=== PATIENT | female | born 1940 | race Caucasian/White ===

== ENCOUNTER 2020-06-26 06:15 | Outpatient (REF) | payer MEDICARE, SELFPAY ==
[2020-06-26 07:21] LABS: MANUAL DIFF FLAG NO
[2020-06-26 07:26] LABS: Basophils Percent Auto 0.2 % (0-2); Eosinophils Absolute Auto 0.3 X10*3/uL (0.0-0.4); Eosinophils Percent Auto 5.9 % (0-4); Hematocrit 39.9 % (37-47); Lymphocytes Absolute Auto 2.2 X10*3/uL (1.2-4.9); Lymphocytes Percent Auto 44.1 % (20-40); Mean Corpuscular HGB Conc 32.6 g/dl (31.0-35.0); Mean Corpuscular Hemoglobin 29.5 pg (27.0-33.0); Mean Corpuscular Volume 90.7 fL (80-98); Mean Platelet Volume 11.3 fL (9.4-12.3); Monocytes Absolute Auto 0.4 X10*3/uL (0.1-1.2); Neutrophils Percent Auto 40.8 % (45-73); Platelet Count 214 X10*3/uL (160-400); Red Cell Distribution Width 12.9 % (11.0-16.0); White Blood Count 4.9 X10*3/uL (4.8-10.8)
[2020-06-26 07:42] LABS: Alanine Aminotransferase 19 U/L (0-31); Albumin Level 4.2 g/dL (3.5-5.0); Alkaline Phosphatase 79 U/L (39-117); Anion Gap 13 (12-20); Aspartate Amino Transferase 24 U/L (5-31); Bilirubin Total 0.5 mg/dL (0.0-1.0); Blood Urea Nitrogen 12 mg/dL (9-16); Carbon Dioxide 28 mmol/L (22-29); Chloride 105 mmol/L (96-108); Cholesterol 213 mg/dL; Estimated Glomerular Filt Rate 56; Glucose Random 99 mg/dL (60-115); HDL Cholesterol 82 mg/dL; LDL Cholesterol Calculated 117 mg/dl; Potassium 4.4 mmol/l (3.3-5.1); Sodium 142 mmol/L (135-145); Total Protein 6.2 g/dL (6.5-8.0); Triglycerides 71 mg/dL
[2020-06-26 08:04] LABS: Thyroid Stimulating Hormone 1.54 uIU/mL (0.32-4.0)
== END 2020-06-26 06:16 | disposition home or self-care (01) ==
LOC: HO.LAB 06:15
PROVIDERS: Visit Provider Internal Medicine
DX: E78.5 Hyperlipidemia, unspecified (principal)
CPT/HCPCS: 36415; 80053; 80061; 84443; 85025

== ENCOUNTER 2021-02-01 08:42 | Outpatient (REF) | payer SELFPAY ==
--- NOTE | 2021-02-01 10:50 | MHC.AU.HFU ---
Hearing Instrument Follow-Up- Binaural Date of Visit: 02/01/21 Right Ear: Commissary Production Supervisor: Ricky Model: Ignite 30 BTE Serial Number: [id number] Repair Warranty: Loss and Damage Warranty: Battery Size: 13 Dispensed By: [facility] Date of Fittin09/17/2011 Left Ear: Commissary Production Supervisor: Ricky Model: Ignite 30 BTE Serial Number: [id number] Repair Warranty: Loss and Damage Warranty: Battery Size: 13 Dispensed By: [facility] Date of Fittin09/17/2011 Follow-Up Summary: Patient reports that she has not been hearing well with the hearing aids recently. Tubing was occluded in both molds. Molds cleaned and tubing replaced. Cleaned shell and battery compartments. Hearing aids are amplifying clearly after maintenance. Otoscopy performed- mostly occluded canals bilaterally. With permission, a lighted disposable curette was used to remove cerumen bilaterally without incident. After cerumen management, canals are clear. Recommendations: Hearing instrument follow-up or maintenance as needed. Paid $35 for cerumen removal. Patient is interested in new hearing aids, potentially ITCs, because her current ones are about 9.5 years old. Discussed that she will need an order for an updated audio, as her last audio was in 2018. We can then discuss new hearing aids after the updated audio. Diagnosis Code(s): Primary Diagnosis: H90.6 Mixed Hearing Loss, Bilateral Secondary Diagnosis: H61.23 Impacted Cerumen, Bilateral Signature: Provider: Awa Sosa, [facility]
== END 2021-02-01 08:43 | disposition home or self-care (01) ==
LOC: HO.HAP 08:42
PROVIDERS: Visit Provider Internal Medicine
DX: H90.6 Mixed conductive and sensorineural hearing loss, bilateral (principal); H61.23 Impacted cerumen, bilateral
CPT/HCPCS: 92700

== ENCOUNTER 2021-02-05 08:23 | Outpatient (REF) | payer MEDICARE, SELFPAY ==
--- NOTE | 2021-02-05 09:55 | MHC.AU.AHA ---
Adult Audiological Evaluation Date of Visit: 02/05/21 Stockfeed Miller Used: Not Applicable Reason for Appointment: Audiologic re-evaluation due to increased difficulties hearing and understanding speech. Isis has binaural [id number] hearing aids which were purchased at this office in 2011. She is interested in purchasing new binaural custom in-the-ear hearing aids with multiple program options to improve ease of use and speech understanding in various listening environments. Previous Hearing Test Results: 02/10/2018 Dr. 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 Ear History: History of Ear Wax Buildup: Both Ears Cerumen removal was performed at this office on 02/01/2021 Medical History: Medical History: High cholesterol and post nasal drip Medication List: Not available for review. Isis reports she takes cholesterol medication, prescription nasal spray, multivitamin, and calcium Hearing Instrument History- Right Ear: Tax Revenue Officer: Voltage Security Model: Ignite 30 LaserLeapE Serial Number: [id number] Battery Size: 13 Repair Warranty: Loss and Damage Warranty: Dispensed By: [facility] Date of Fittin Hearing Instrument History- Left Ear: Tax Revenue Officer: Voltage Security Model: Ignite 30 BTE Serial Number: [id number] Battery Size: 13 Warranty: Loss and Damage Warranty: Dispensed By: [facility] Date of Fittin Otoscopy: Right Ear: Unremarkable Left Ear: Unremarkable Tympanometry: Tympanometry not performed today as all previous test results have indicated normal middle ear function bilaterally Hearing Evaluation: Transducer(s) Used: Insert Earphones Bone Conduction Method: Conventional Audiometry Stimuli Used: Pure Tones Right Ear: Description of Hearing: Moderately-severe to severe sensorineural hearing loss Left Ear: Description of Hearing: Moderately-severe to severe sensorineural hearing loss Speech Recognition Threshold (SRT): Method Used: Monitored Live Voice Stimuli Used: Spondee Words Right Ear: 65 dB HL Left Ear: 65 dB HL Word Discrimination: Method: Recorded Lists Word Lists Used: NU-6 Right Ear: 76% at 95 dB HL Left Ear: 68% at 95 dB HL Most Comfortable Level (MCL): Right Ear: 95 dB HL Left Ear: 95 dB HL Comparison: Compared to the most recent evaluation: Hearing is stable. Word discrimination scores have decreased bilaterally. Recommendations: Trial with binaural Voltage Security [id number] in-the-ear hearing aids is recommended. Medical clearance from a physician is required before fitting. Hearing Aid Fitting will be scheduled when all materials arrive. Audiological re-evaluation in one year. Will send a reminder card. Diagnosis: Primary Diagnosis: H90.3 Bilateral Sensorineural Hearing Loss Services Performed: Comprehensive Audiological Evaluation (CPT 68594) Signature: Provider: MONA Bray
== END 2021-02-05 08:24 | disposition home or self-care (01) ==
LOC: HO.SH 08:23
PROVIDERS: Visit Provider Internal Medicine
DX: H90.3 Sensorineural hearing loss, bilateral (principal)
CPT/HCPCS: 92557

== ENCOUNTER 2021-02-05 09:16 | Outpatient (REF) | payer SELFPAY ==
--- NOTE | 2021-02-05 10:04 | MHC.AU.HAS ---
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 Summary: Patient is experiencing increased hearing difficulties and unable to understand speech when attending [employer]. She would like to purchase new in-the-ear hearing aids with a program button to change programs for the various listening environments she experiences. Hearing Aid Prescription: Based on the individual?s shared listening needs, communication environments, dexterity, desire for connectivity, and personal preferences, the following prescription for amplification has been made: Right ear: Books Binder: Hands-On Mobile Model: Gerard i1600 ITE Battery Size: 13 Color: [place] Waxer Floor: 130/70 Left ear: Books Binder: Hands-On Mobile Model: Gerard i1600 ITE Battery Size: 13 Color: [place] Waxer Floor: 130/70 Plan of Care: Patient wishes to purchase hearing aids as prescribed Action Taken/Action Needed: Earmold Impressions Taken, Medical Clearance to be requested from PCP/ENT, Hearing Instrument Fitting to be scheduled when materials arrive Primary Diagnosis: H90.3 Bilateral Sensorineural Hearing Loss Signature: Janell Billings, CCC-A Provider:
--- NOTE | 2021-02-05 10:07 | MHC.AU.MED ---
Medical Clearance for Hearing Instrumentation Date: 02/05/21 Patient Name: Isis Valentin Date of : 1940 Primary Care Provider: Referring Provider: Jesus Hunter MD We have seen your patient on 02/05/21 and have determined that they are a candidate for amplification (See accompanying report). Specifically, they would benefit from: Hearing aid use in both ears There is a statute that addresses Medical Evaluation Requirements prior to fitting a patient with a hearing aid. According to [place] statute 265 CMR:6.03(1), (a) General. Except as provided in 265 CMR 6.03(1)(b), a hearing therapy teacher shall not sell a hearing aid unless the prospective user has presented to the hearing therapy teacher a written statement signed by a licensed physician that states that the patient's hearing loss has been medically evaluated and the patient may be considered a candidate for a hearing aid. The medical evaluation must have taken place within the preceding six months. Please note: Due to the [place] Statute referenced above, we cannot accept a signature other than that of a licensed physician. MACHINE STACKER and PA signatures cannot be accepted. I am in agreement with the above recommendation. There is no medical contraindication for hearing instrumentation. Physician Signature Date Physician Name (Printed)
== END 2021-02-05 09:17 | disposition home or self-care (01) ==
LOC: HO.HAP 09:16
PROVIDERS: Visit Provider Internal Medicine
DX: Z46.1 Encounter for fitting and adjustment of hearing aid (principal); H90.3 Sensorineural hearing loss, bilateral
CPT/HCPCS: 92591

== ENCOUNTER 2021-02-23 08:50 | Outpatient (REF) | payer SELFPAY | END 2021-02-23 08:51 | disposition home or self-care (01) | LOC: HO.HAP 08:50 | PROVIDERS: Visit Provider Internal Medicine | DX: Z46.1 Encounter for fitting and adjustment of hearing aid (principal); H90.3 Sensorineural hearing loss, bilateral | CPT/HCPCS: V5260 ==

== ENCOUNTER 2021-03-09 10:39 | Outpatient (REF) | payer SELFPAY | END 2021-03-09 10:40 | disposition home or self-care (01) | LOC: HO.HAP 10:39 | PROVIDERS: Visit Provider Internal Medicine | DX: Z13.89 Encounter for screening for other disorder (principal) ==

== ENCOUNTER 2021-03-20 09:46 | Outpatient (REF) | payer SELFPAY | END 2021-03-20 09:47 | disposition home or self-care (01) | LOC: HO.HAP 09:46 | PROVIDERS: Visit Provider Internal Medicine | DX: Z13.89 Encounter for screening for other disorder (principal) ==

== ENCOUNTER 2021-07-09 06:54 | Outpatient (REF) | payer MEDICARE, SELFPAY ==
[2021-07-09 07:05] LABS: MANUAL DIFF FLAG NO
[2021-07-09 07:46] LABS: Basophils Percent Auto 0.3 % (0-2); Eosinophils Absolute Auto 0.2 X10*3/uL (0.0-0.4); Eosinophils Percent Auto 3.3 % (0-4); Hematocrit 43.8 % (37.0-47.0); Hemoglobin 14.3 g/dl (12.0-16.0); Imm Gran Abs Auto 0.01 X10*3/uL (0.00-0.03); Imm Gran Pct Auto 0.2 % (0.0-0.4); Lymphocytes Absolute Auto 2.4 X10*3/uL (1.2-4.9); Lymphocytes Percent Auto 37.8 % (20-40); Mean Corpuscular HGB Conc 32.6 g/dl (31.0-35.0); Mean Corpuscular Hemoglobin 30.1 pg (27.0-33.0); Mean Corpuscular Volume 92.2 fL (80.0-98.0); Mean Platelet Volume 10.4 fL (9.4-12.3); Monocytes Absolute Auto 0.6 X10*3/uL (0.1-1.2); Monocytes Percent Auto 9.8 % (2-11); Neutrophils Absolute Auto 3.1 x10*3/uL (2.0-8.3); Neutrophils Percent Auto 48.6 % (45-73); Platelet Count 277 X10*3/uL (160-400); Red Blood Count 4.75 X10*6/uL (4.20-5.50); White Blood Count 6.4 X10*3/uL (4.8-10.8)
[2021-07-09 08:13] LABS: Alanine Aminotransferase 22 U/L (0-31); Albumin Level 4.5 g/dL (3.5-5.0); Alkaline Phosphatase 87 U/L (39-117); Anion Gap 12 (12-20); Aspartate Amino Transferase 27 U/L (5-31); Bilirubin Total 0.6 mg/dL (0.0-1.0); Blood Urea Nitrogen 12 mg/dL (9-16); Calcium 9.8 mg/dL (8.4-10.2); Carbon Dioxide 27 mmol/L (22-29); Chloride 105 mmol/L (96-108); Cholesterol 254 mg/dL; Estimated Glomerular Filt Rate 50; Glucose Fasting 103 mg/dL (60-99); HDL Cholesterol 108 mg/dL; LDL Cholesterol Calculated 125 mg/dl; Potassium 4.3 mmol/L (3.3-5.1); Sodium 140 mmol/L (135-145); Total Protein 7.1 g/dL (6.5-8.0); Triglycerides 107 mg/dL
== END 2021-07-09 06:55 | disposition home or self-care (01) ==
LOC: HO.LAB 06:54
PROVIDERS: PCP Internal Medicine; Visit Provider Internal Medicine
DX: Z00.00 Encounter for general adult medical examination without abnormal findings (principal); E11.9 Type 2 diabetes mellitus without complications
CPT/HCPCS: 36415; 80053; 80061; 85025

== ENCOUNTER 2021-10-11 07:00 | Outpatient (REF) | payer MEDICARE, SELFPAY ==
[2021-10-11 08:00] LABS: Cholesterol 221 mg/dL; HDL Cholesterol 92 mg/dL; LDL Cholesterol Calculated 115 mg/dl; Triglycerides 74 mg/dL
== END 2021-10-11 07:01 | disposition home or self-care (01) ==
LOC: HO.LAB 07:00
PROVIDERS: PCP Internal Medicine; Visit Provider Internal Medicine
DX: Z00.00 Encounter for general adult medical examination without abnormal findings (principal)
CPT/HCPCS: 36415; 80061

== ENCOUNTER 2022-01-11 06:17 | Outpatient (REF) | payer MEDICARE, SELFPAY ==
[2022-01-11 06:43] LABS: MANUAL DIFF FLAG NO
[2022-01-11 07:18] LABS: Basophils Percent Auto 0.4 % (0-2); Eosinophils Absolute Auto 0.2 X10*3/uL (0.0-0.4); Eosinophils Percent Auto 3.2 % (0-4); Hematocrit 37.7 % (37.0-47.0); Hemoglobin 12.5 g/dl (12.0-16.0); Imm Gran Abs Auto 0.01 X10*3/uL (0.00-0.03); Imm Gran Pct Auto 0.2 % (0.0-0.4); Lymphocytes Absolute Auto 1.8 X10*3/uL (1.2-4.9); Lymphocytes Percent Auto 38.5 % (20-40); Mean Corpuscular HGB Conc 33.2 g/dl (31.0-35.0); Mean Corpuscular Hemoglobin 29.8 pg (27.0-33.0); Mean Platelet Volume 10.3 fL (9.4-12.3); Monocytes Absolute Auto 0.5 X10*3/uL (0.1-1.2); Monocytes Percent Auto 9.6 % (2-11); Neutrophils Absolute Auto 2.2 x10*3/uL (2.0-8.3); Neutrophils Percent Auto 48.1 % (45-73); Platelet Count 222 X10*3/uL (160-400); Red Blood Count 4.19 X10*6/uL (4.20-5.50); Red Cell Distribution Width 12.9 % (11.0-16.0); White Blood Count 4.7 X10*3/uL (4.8-10.8)
[2022-01-11 07:50] LABS: Alanine Aminotransferase 15 U/L (0-31); Albumin Level 4.1 g/dL (3.5-5.0); Alkaline Phosphatase 88 U/L (39-117); Anion Gap 13 (12-20); Aspartate Amino Transferase 21 U/L (5-31); Bilirubin Total 0.6 mg/dL (0.0-1.0); Blood Urea Nitrogen 13 mg/dL (9-16); Calcium 8.9 mg/dL (8.4-10.2); Carbon Dioxide 25 mmol/L (22-29); Chloride 107 mmol/L (96-108); Cholesterol 210 mg/dL; Estimated Glomerular Filt Rate 57; Glucose Fasting 88 mg/dL (60-99); HDL Cholesterol 78 mg/dL; LDL Cholesterol Calculated 122 mg/dl; Potassium 4.4 mmol/L (3.3-5.1); Sodium 141 mmol/L (135-145); Total Protein 6.2 g/dL (6.5-8.0); Triglycerides 53 mg/dL
[2022-01-11 08:09] LABS: Thyroid Stimulating Hormone 1.52 uIU/mL (0.32-4.0)
== END 2022-01-11 06:18 | disposition home or self-care (01) ==
LOC: HO.LAB 06:17
PROVIDERS: PCP Internal Medicine; Visit Provider Internal Medicine
DX: Z00.00 Encounter for general adult medical examination without abnormal findings (principal); Z13.0 Encounter for screening for diseases of the blood and blood-forming organs and certain disorders involving the immune mechanism
CPT/HCPCS: 36415; 80053; 80061; 84443; 85025

== ENCOUNTER 2022-07-16 06:16 | Outpatient (REF) | payer MEDICARE, SELFPAY ==
[2022-07-16 08:49] LABS: Cholesterol 205 mg/dL; HDL Cholesterol 77 mg/dL; LDL Cholesterol Calculated 110 mg/dl; Triglycerides 90 mg/dL
== END 2022-07-16 06:17 | disposition home or self-care (01) ==
LOC: HO.LAB 06:16
PROVIDERS: PCP Internal Medicine; Visit Provider Internal Medicine
DX: E78.5 Hyperlipidemia, unspecified (principal)
CPT/HCPCS: 36415; 80061

== ENCOUNTER 2023-01-13 06:22 | Outpatient (REF) | payer MEDICARE, SELFPAY ==
[2023-01-13 06:45] LABS: MANUAL DIFF FLAG NO
[2023-01-13 07:17] LABS: Basophils Percent Auto 0.6 % (0-2); Eosinophils Absolute Auto 0.2 X10*3/uL (0.0-0.4); Eosinophils Percent Auto 4.3 % (0-4); Hematocrit 39.2 % (37.0-47.0); Hemoglobin 12.6 g/dl (12.0-16.0); Imm Gran Abs Auto 0.01 X10*3/uL (0.00-0.03); Imm Gran Pct Auto 0.2 % (0.0-0.4); Lymphocytes Absolute Auto 2.3 X10*3/uL (1.2-4.9); Lymphocytes Percent Auto 44.1 % (20-40); Mean Corpuscular HGB Conc 32.1 g/dl (31.0-35.0); Mean Corpuscular Hemoglobin 28.7 pg (27.0-33.0); Mean Corpuscular Volume 89.3 fL (80.0-98.0); Mean Platelet Volume 10.8 fL (9.4-12.3); Monocytes Absolute Auto 0.5 X10*3/uL (0.1-1.2); Monocytes Percent Auto 8.8 % (2-11); Neutrophils Absolute Auto 2.1 x10*3/uL (2.0-8.3); Platelet Count 223 X10*3/uL (160-400); Red Blood Count 4.39 X10*6/uL (4.20-5.50); Red Cell Distribution Width 13.2 % (11.0-16.0); White Blood Count 5.1 X10*3/uL (4.8-10.8)
[2023-01-13 07:51] LABS: Alanine Aminotransferase 15 U/L (0-31); Albumin Level 3.9 g/dL (3.5-5.0); Alkaline Phosphatase 93 U/L (39-117); Anion Gap 13 (12-20); Aspartate Amino Transferase 22 U/L (5-31); Bilirubin Total 0.5 mg/dL (0.0-1.0); Blood Urea Nitrogen 16 mg/dL (9-16); Calcium 9.2 mg/dL (8.4-10.2); Carbon Dioxide 25 mmol/L (22-29); Chloride 107 mmol/L (96-108); Cholesterol 209 mg/dL; Estimated Glomerular Filt Rate > 60; Glucose Fasting 94 mg/dL (60-99); HDL Cholesterol 84 mg/dL; LDL Cholesterol Calculated 115 mg/dl; Potassium 4.3 mmol/L (3.3-5.1); Sodium 141 mmol/L (135-145); Total Protein 6.4 g/dL (6.5-8.0); Triglycerides 52 mg/dL
== END 2023-01-13 06:23 | disposition home or self-care (01) ==
LOC: HO.LAB 06:22
PROVIDERS: PCP Internal Medicine; Visit Provider Internal Medicine
DX: N28.9 Disorder of kidney and ureter, unspecified (principal); E78.5 Hyperlipidemia, unspecified; D64.9 Anemia, unspecified
CPT/HCPCS: 36415; 80053; 80061; 85025

== ENCOUNTER 2023-01-16 08:52 | Outpatient (AMB) | payer MEDICARE, SELFPAY ==
--- NOTE | 2023-01-16 08:54 | MHC.PC.OV ---
Vital Signs 01/16/23 08:55 Height 5 ft 1 in Weight 118 lb 6 oz BMI 22.4 BP 100/70 Blood Pressure Location Lt brachial Position Sitting Pulse 83 Pulse Source Pulse Oximeter Pulse Oximetry (%) 97 Oxygen Delivery Method Room Air Intake Visit Reasons: Annual Exam Music Teacher Required: No Accompanied by: Self / Same As Patient Allergies No Known Allergies Allergy (Verified 01/16/23 08:55) Medication List - Last Reconciled 01/16/23 by Jesus Hunter MD fluticasone propionate 50 mcg/actuation 2 sprays intranasal DAILY multivitamin (Daily Multi-Vitamin tablet) 1 tab PO DAILY polyethylene glycol 3350 (Miralax) 17 grams PO DAILY simvastatin 20 mg PO QPM Tobacco use date assessed: 01/16/23 Fall risk assessment: No Falls in past year Last assessed Fall Risk: 01/16/23 Dental Screening Dental Screen Date: 01/16/23 Did you have a dental visit in the last 12 months?: Yes Did you have a dental problem in the last 6 months where you did not have access to dental care?: No Was dental information given to patient?: Patient has dentist HPI Annual Exam HPI Details hyperlipidemia and allergic rhinitis; doing well [facility] Medical History (Updated 01/15/22 @ 09:18 by Jesus Hunter MD) Hyperlipidemia Surgical History History of breast biopsy Family History Father Myocardial infarction Mother Pancreatic cancer Brother Myocardial infarction Sister Respiratory disease Sister Breast cancer Social History Housing: House Patient Tobacco Use Status: Never used Tobacco e-Cigarette/Vaping Use: Never Used Second Hand Smoke Exposure: No service: No Current occupational status: retired Cognitive needs: No Hearing needs: Yes Vision needs: Yes Questionnaire PHQ-9 Over the last 2 weeks, how often have you been bothered by any of the following problems? 1. Little interest or pleasure in doing things: not at all 2. Feeling down, depressed, or hopeless: not at all 3. Trouble falling or staying asleep, or sleeping too much: not at all 4. Feeling tired or having little energy: not at all 5. Poor appetite or overeating: not at all 6. Feeling bad about yourself - or that you are a failure or have let yourself or your family down: not at all 7. Trouble concentrating on things, such as reading the newspaper or watching television: not at all 8. Moving or speaking so slowly that other people could have noticed. Or the opposite - being so fidgety or restless that you have been moving around a lot more than usual: not at all 9. Thoughts that you would be better off or of hurting yourself in some way: not at all Total score: 0 Depression Screening Interpretation: Negative 96779 - PHQ-9 Billing: Yes Source: Developed by Drs. Jose Alberto Azar, Latrice Molina, Samuel Marinelli and colleagues, with an educational neal from [employer]. Thrive Questionnaire Date Thrive assessed: 01/16/23 I am a: Patient What is your living situation today?: I have a steady place to live Within the past 12 months, did the food you bought not last and you didn't have the money to get more?: Never true Within the past 12 months, did you worry whether your food would run out before you got money to buy more?: Never true Do you have trouble paying for medicines?: No Do you have trouble getting transportation to medical appointments?: No Do you have trouble paying your heating and electricity bill?: No Do you have trouble taking care of your child, family member or friend?: No Do you have trouble with day-to-day activities such as bathing, preparing meals, shopping, managing finances, etc.?: No Are you currently unemployed and looking for a job?: No Are you interested in more education?: No Please select the resources that you would like help with: None Currently or been in a relationship where the following occur: no concerns reported AUDIT C Alcohol Use Questionnaire (AUDIT-C) 1. How often do you have a drink containing alcohol?: Never Total Score: 0 Score Reviewed/Action Taken: Yes SHEREE-7 AMB Questionnaire SHEREE-7 Date SHEREE - 7 assessed: 01/16/23 Feeling nervous, anxious, or on edge: 0 = Not at all Not being able to stop or control worryin = Not at all Worrying too much about different things: 0 = Not at all Trouble relaxin = Not at all Being so restless that it is hard to sit still: 0 = Not at all Becoming easily annoyed or irritable: 0 = Not at all Feeling afraid as if something awful might happen: 0 = Not at all Total SHEREE-7 score (0-4 normal; 5-9 mild; 10-14 moderate; 15-21 severe): 0 Source: Developed by Drs. Jose Alberto Azar, Latrice Molina, Samuel Marinelli and colleagues, with an educational neal from [employer]. SHEREE-7 Assessment Billing SHEREE-7 Assessment Tool: SHEREE-7 Assessment 70165 Review of Systems Const Denies chills, Denies fatigue, Denies headache(s) and Denies weight loss Eyes Denies change in vision, Denies diplopia and Denies eye pain ENT Denies vertigo, Denies dizziness, Denies headache(s) and Denies nasal discharge Card Denies chest pain, Denies rapid heart rate and Denies dyspnea on exertion Resp Denies chest congestion, Denies cough, Denies pain with cough and Denies dyspnea on exertion GI Denies abdominal pain, Denies hematochezia and Denies change in bowel habits Musc Denies myalgias, Denies arthralgias and Denies joint swelling Skin/Breast Denies lesions and Denies unusual bruising Neuro Denies vertigo, Denies dizziness, Denies headache(s) and Denies focal weakness Endo Denies fatigue Physical exam (Primary Care) Vital Signs: Last Vital Signs Pulse 83 01/16/23 08:55 BP 100/70 01/16/23 08:55 Pulse Ox 97 01/16/23 08:55 Oxygen Delivery Method Room Air 01/16/23 08:55 BMI result Body Mass Index 22.4 Tobacco/Smoking Status: Tobacco use Status Tobacco use date assessed 01/16/23 01/16/23 09:01 Patient Tobacco Use Status Never used Tobacco 01/16/23 09:01 e-Cigarette/Vaping Use Never Used 01/16/23 09:01 PHQ-9: PHQ-9 Score PHQ-9: Total score 0 01/16/23 09:01 Depression Screening Interpretation: Negative Thrive Assessment: Date of Thrive Assessment Date Thrive assessed 01/16/23 01/16/23 09:01 Currently or been in a relationship where the following occur: no concerns reported Advance Care Planning discussion: On file, no changes Forms completed: Health Care Proxy Const General: cooperative, healthy appearing and no acute distress Orientation/consciousness: oriented to person, oriented to place and oriented to time HENMT Head: Yes normal to inspection, Yes normocephalic and Yes atraumatic Mouth: Normal oral and palatal mucosa present and tongue normal Throat: Yes posterior oropharynx normal and Yes uvula midline Eyes General: appearance normal, both eyes and all related structures Neck Neck: Yes normal visual inspection, Yes full ROM and Yes no lymphadenopathy Thyroid: Thyroid normal Carotids: normal carotid upstroke Chest Chest palpation & inspection: normal inspection of the chest Resp Effort & Inspection: normal respiratory effort and able to speak in complete sentences Auscultation: clear to auscultation bilaterally Cardio Jugular venous distension: no JVD Palpation: normal PMI Rate: regular rate Rhythm: regular rhythm Heart sounds: S1 normal heart sound present and S2 normal heart sound present GI Inspection: Yes normal to inspection Palpation (GI): Soft to palpation and No hepatosplenomegaly present Auscultation: normal bowel sounds General: Yes no CVA tenderness Back/Spine/Pelvis Back: no CVA tenderness Skin General skin exam: no rashes or lesions noted Neuro General: oriented to person, oriented to place and oriented to time Extrem General: Yes normal to inspection and Yes full ROM Assessment and Plan Assessment & Plan (1) Physical exam: Code(s): Z00.00 - Encounter for general adult medical examination without abnormal findings Plan: stable (2) Allergic rhinitis: Code(s): J30.9 - Allergic rhinitis, unspecified Plan: stable; same meds (3) Hyperlipidemia: Code(s): E78.5 - Hyperlipidemia, unspecified Plan: stable; same meds Orders: Orders Lipid Panel Today E78.5 - Hyperlipidemia, unspecified Medications: Refilled fluticasone propionate 50 mcg/actuation administer into each nostril 2 sprays intranasal DAILY 15.8 mL 8RF simvastatin 20 mg PO QPM 90 tabs 8RF Coding Level of Care Code Est Pt Prev Care >65y(48697) Diagnoses Physical exam Z00.00 Allergic rhinitis J30.9 Hyperlipidemia E78.5 Additional Codes SHEREE-7 Assessment Billing - SHEREE-7 Assessment Tool: SHEREE-7 Assessment 36179 ([id number]) Vital Signs *Quality* - Advance Care Planning discussion: On file, no changes ([id number])
[2023-01-16 08:55] VITALS: BP 100/70; PULSE 83; O2SAT 97; BMI 22.4
== END 2023-01-16 09:27 | disposition home or self-care (01) ==
PROVIDERS: PCP Internal Medicine; Visit Provider Internal Medicine
DX: Z00.00 Encounter for general adult medical examination without abnormal findings (principal); J30.9 Allergic rhinitis, unspecified; E78.5 Hyperlipidemia, unspecified
CPT/HCPCS: 1123F; 99397

== ENCOUNTER 2023-05-21 11:01 | Outpatient (REF) | payer SELFPAY ==
--- NOTE | 2023-05-21 11:58 | MHC.AU.HA3 ---
Hearing Instrument Follow-Up- Binaural Date of Visit: 05/21/23 Right Ear: Gunnar, Model, Color, Serial Number: Ricky Gee [id number] SN: [id number] Color: pPink Packing Room Worker Repair Warranty: 03/17/2024 Packing Room Worker Loss and Damage Warranty: 03/17/2024 Battery Size: 13 Cleaning Supervisor/Slim Tube: 130/70 Type of Wax Guard: HearClear Dispensed By: [facility] Date of Fittin02/23/2021 Left Ear: Gunnar, Model, Color, Serial Number: Ricky Gee [id number] ITE SN: [id number] Color: [place] Packing Room Worker Repair Warranty: 03/17/2024 Packing Room Worker Loss and Damage Warranty: 03/17/2024 Battery Size: 13 Cleaning Supervisor/Slim Tube: 130/70 Type of Wax Guard: HearClear Dispensed By: [facility] Date of Fittin02/23/2021 Follow-Up Summary: Isis reported that recently her hearing seemed to worsen - likely a combination of the hearing aids needing cleaning and a change in her hearing. She reported significant sinus issues that she has been taking [id number] medication to treat. Otoscopy revealed occluding cerumen, bilaterally, right worse than left. Too hard and deep to attempt removal in office. Advised to contact PCP for cerumen removal or referral to ENT for removal. Cleaned both hearing aids. Replaced wax guards and microphone covers. Ran through dehumidifier. A listening check demonstrated the hearing aids are functioning. Isis noted an improvement in sound quality after cleaning. Also discussed updated hearing test due to perceived change in hearing following wax removal. Recommendations: Hearing instrument follow-up or maintenance as needed. Please contact our clinic with any questions or concerns. Recommendations (Other): Updated hearing test following wax removal - Isis will request a doctor's order for the test from her PCP. Diagnosis Code(s): Primary Diagnosis: H90.3 Bilateral Sensorineural Hearing Loss Signature: Provider: Christi Hoyt, [facility]
== END 2023-05-21 11:02 | disposition home or self-care (01) ==
LOC: HO.HAP 11:01
PROVIDERS: Visit Provider Internal Medicine
DX: Z13.89 Encounter for screening for other disorder (principal)

== ENCOUNTER 2023-07-24 06:59 | Outpatient (REF) | payer MEDICARE, SELFPAY ==
[2023-07-24 08:26] LABS: Cholesterol 183 mg/dL (<200); HDL Cholesterol 80 mg/dL (>40); LDL Cholesterol Calculated 93 mg/dL (<100); Triglycerides 52 mg/dL (<150)
== END 2023-07-24 07:00 | disposition home or self-care (01) ==
LOC: HO.LAB 06:59
PROVIDERS: PCP Internal Medicine; Visit Provider Internal Medicine
DX: E78.5 Hyperlipidemia, unspecified (principal)
CPT/HCPCS: 36415; 80061

== ENCOUNTER 2023-07-29 09:33 | Outpatient (AMB) | payer MEDICARE, SELFPAY ==
[2023-07-29 09:37] VITALS: BP 136/80; PULSE 85; O2SAT 94; BMI 23.0
--- NOTE | 2023-07-29 09:37 | A.OFFPC_ITS ---
Vital Signs 07/29/23 09:37 Height 5 ft 1 in Weight 122 lb BMI 23.0 BP 136/80 Blood Pressure Location Lt brachial Position Sitting Pulse 85 Pulse Source Pulse Oximeter Pulse Oximetry (%) 94 Oxygen Delivery Method Room Air Intake Visit Reasons: 6mth f/u Drill Operator Automatic Required: No Facility Engineer: Not Required per policy Accompanied by: Self / Same As Patient Allergies No Known Allergies Allergy (Verified 07/29/23 09:38) Medication List - Last Reconciled 07/29/23 by Jesus Hunter MD fluticasone propionate 50 mcg/actuation 2 sprays intranasal DAILY multivitamin (Daily Multi-Vitamin tablet) 1 tab PO DAILY polyethylene glycol 3350 (Miralax) 17 grams PO DAILY simvastatin 20 mg PO QPM Tobacco use date assessed: 07/29/23 Fall risk assessment: No Falls in past year Last assessed Fall Risk: 07/29/23 Dental Screening Dental Screen Date: 07/29/23 Did you have a dental visit in the last 12 months?: Yes Did you have a dental problem in the last 6 months where you did not have access to dental care?: No Was dental information given to patient?: Patient has dentist HPI 6mth f/u HPI Details hyperlip on rx; doing well; compliant [facility] Medical History (Updated 01/15/22 @ 09:18 by Jesus Hunter MD) Hyperlipidemia Surgical History History of breast biopsy Family History Father Myocardial infarction Mother Pancreatic cancer Brother Myocardial infarction Sister Respiratory disease Sister Breast cancer Social History Housing: House Patient Tobacco Use Status: Never used Tobacco e-Cigarette/Vaping Use: Never Used Second Hand Smoke Exposure: No service: No Current occupational status: retired Cognitive needs: No Hearing needs: Yes Vision needs: Yes Questionnaire PHQ-9 Over the last 2 weeks, how often have you been bothered by any of the following problems? 1. Little interest or pleasure in doing things: not at all 2. Feeling down, depressed, or hopeless: not at all 3. Trouble falling or staying asleep, or sleeping too much: not at all 4. Feeling tired or having little energy: not at all 5. Poor appetite or overeating: not at all 6. Feeling bad about yourself - or that you are a failure or have let yourself or your family down: not at all 7. Trouble concentrating on things, such as reading the newspaper or watching television: not at all 8. Moving or speaking so slowly that other people could have noticed. Or the opposite - being so fidgety or restless that you have been moving around a lot more than usual: not at all 9. Thoughts that you would be better off or of hurting yourself in some way: not at all Total score: 0 Depression Screening Interpretation: Negative Depression Screening Done: Yes [id number] - PHQ-9 Billing: Yes Source: Developed by Drs. Jose Alberto Azar, Latrice Molina, Samuel Marinelli and colleagues, with an educational neal from [employer]. Thrive Questionnaire Date Thrive assessed: 01/29/23 I am a: Patient What is your living situation today?: I have a steady place to live Within the past 12 months, did the food you bought not last and you didn't have the money to get more?: Never true Within the past 12 months, did you worry whether your food would run out before you got money to buy more?: Never true Do you have trouble paying for medicines?: No Do you have trouble getting transportation to medical appointments?: No Do you have trouble paying your heating and electricity bill?: No Do you have trouble taking care of your child, family member or friend?: No Do you have trouble with day-to-day activities such as bathing, preparing meals, shopping, managing finances, etc.?: No Are you currently unemployed and looking for a job?: No Are you interested in more education?: No Please select the resources that you would like help with: None THRIVE Score: 0 AUDIT C Alcohol Use Questionnaire (AUDIT-C) 1. How often do you have a drink containing alcohol?: Never Total Score: 0 Score Reviewed/Action Taken: Yes SHEREE-7 AMB Questionnaire SHEREE-7 Date SHEREE - 7 assessed: 07/29/23 Feeling nervous, anxious, or on edge: 0 = Not at all Not being able to stop or control worryin = Not at all Worrying too much about different things: 0 = Not at all Trouble relaxin = Not at all Being so restless that it is hard to sit still: 0 = Not at all Becoming easily annoyed or irritable: 0 = Not at all Feeling afraid as if something awful might happen: 0 = Not at all Total SHEREE-7 score (0-4 normal; 5-9 mild; 10-14 moderate; 15-21 severe): 0 Source: Developed by Drs. Jose Alberto Azar, Latrice Molina, Samuel Marinelli and colleagues, with an educational neal from [employer]. SHEREE-7 Assessment Billing SHEERE-7 Assessment Tool: SHEREE-7 Assessment 68371 Review of Systems Const Denies chills, Denies headache(s) and Denies weight loss ENT Denies headache(s) Card Denies chest pain, Denies syncope, Denies irregular heart rhythm and Denies dyspnea Resp Denies chest congestion, Denies cough and Denies dyspnea GI Denies abdominal pain, Denies change in stool character, Denies nausea and Denies vomiting Musc Denies deformity and Denies joint swelling Neuro Denies syncope and Denies headache(s) Physical exam (Primary Care) Vital Signs: Last Vital Signs Pulse 85 07/29/23 09:37 BP 136/80 07/29/23 09:37 Pulse Ox 94 07/29/23 09:37 Oxygen Delivery Method Room Air 07/29/23 09:37 BMI result Body Mass Index 23.0 Tobacco/Smoking Status: Tobacco use Status Tobacco use date assessed 07/29/23 07/29/23 09:43 Patient Tobacco Use Status Never used Tobacco 07/29/23 09:43 e-Cigarette/Vaping Use Never Used 07/29/23 09:43 PHQ-9: PHQ-9 Score PHQ-9: Total score 0 07/29/23 09:43 Depression Screening Interpretation: Negative Thrive Assessment: Date of Thrive Assessment Date Thrive assessed 01/29/23 07/29/23 09:43 Const General: cooperative, comfortable, no acute distress and alert Neck Neck: Yes no lymphadenopathy Thyroid: Thyroid normal Resp Effort & Inspection: normal respiratory effort Auscultation: clear to auscultation bilaterally Percussion: percussion normal Cardio Jugular venous distension: no JVD Palpation: normal PMI Rate: regular rate Rhythm: regular rhythm Heart sounds: S1 normal heart sound present and S2 normal heart sound present GI Inspection: Yes normal to inspection Palpation (GI): No hepatosplenomegaly present Skin General skin exam: no rashes or lesions noted Extrem General: Yes no clubbing, cyanosis or edema Assessment and Plan Assessment & Plan (1) Hyperlipidemia: Code(s): E78.5 - Hyperlipidemia, unspecified Plan: stable; same rx Medications: Refilled fluticasone propionate 50 mcg/actuation administer into each nostril 2 sprays intranasal DAILY 15.8 mL 8RF Coding Level of Care Code Est Pt Level 3 (32021) Diagnoses Hyperlipidemia E78.5 Additional Codes SHEREE-7 Assessment Billing - SHEREE-7 Assessment Tool: SHEREE-7 Assessment [id number] ([id number])
== END 2023-07-29 09:54 | disposition home or self-care (01) ==
PROVIDERS: PCP Internal Medicine; Visit Provider Internal Medicine
DX: E78.5 Hyperlipidemia, unspecified (principal)
CPT/HCPCS: 99213

== ENCOUNTER 2024-01-15 06:12 | Outpatient (REF) | payer MEDICARE, SELFPAY ==
[2024-01-15 06:28] LABS: MANUAL DIFF FLAG NO
[2024-01-15 07:20] LABS: Basophils Percent Auto 0.6 % (0-2); Eosinophils Absolute Auto 0.2 X10*3/uL (0.0-0.4); Eosinophils Percent Auto 3.1 % (0-4); Hematocrit 39.7 % (37.0-47.0); Hemoglobin 13.1 g/dl (12.0-16.0); Imm Gran Abs Auto 0.01 X10*3/uL (0.00-0.03); Imm Gran Pct Auto 0.2 % (0.0-0.4); Lymphocytes Absolute Auto 2.2 X10*3/uL (1.2-4.9); Lymphocytes Percent Auto 42.5 % (20-40); Mean Corpuscular Hemoglobin 30.3 pg (27.0-33.0); Mean Corpuscular Volume 91.7 fL (80.0-98.0); Mean Platelet Volume 10.7 fL (9.4-12.3); Monocytes Absolute Auto 0.5 X10*3/uL (0.1-1.2); Monocytes Percent Auto 9.4 % (2-11); Neutrophils Absolute Auto 2.3 x10*3/uL (2.0-8.3); Neutrophils Percent Auto 44.2 % (45-73); Platelet Count 244 X10*3/uL (160-400); Red Blood Count 4.33 X10*6/uL (4.20-5.50); Red Cell Distribution Width 13.1 % (11.0-16.0); White Blood Count 5.2 X10*3/uL (4.8-10.8)
[2024-01-15 07:53] LABS: Alanine Aminotransferase 15 U/L (0-31); Albumin Level 4.1 g/dL (3.5-5.0); Alkaline Phosphatase 98 U/L (39-117); Anion Gap 15 (12-20); Aspartate Amino Transferase 24 U/L (5-31); Bilirubin Total 0.5 mg/dL (0.0-1.0); Blood Urea Nitrogen 11 mg/dL (9-16); Calcium 9.6 mg/dL (8.4-10.2); Carbon Dioxide 25 mmol/L (22-29); Chloride 105 mmol/L (96-108); Cholesterol 197 mg/dL (<200); Estimated Glomerular Filt Rate > 60; Glucose Fasting 95 mg/dL (60-99); HDL Cholesterol 82 mg/dL (>40); LDL Cholesterol Calculated 104 mg/dL (<100); Potassium 4.2 mmol/L (3.3-5.1); Sodium 141 mmol/L (135-145); Total Protein 6.4 g/dL (6.5-8.0); Triglycerides 59 mg/dL (<150)
== END 2024-01-15 06:13 | disposition home or self-care (01) ==
LOC: HO.LAB 06:12
PROVIDERS: PCP Internal Medicine; Visit Provider Internal Medicine
DX: Z13.0 Encounter for screening for diseases of the blood and blood-forming organs and certain disorders involving the immune mechanism (principal); Z13.220 Encounter for screening for lipoid disorders; Z13.9 Encounter for screening, unspecified; Z13.29 Encounter for screening for other suspected endocrine disorder
CPT/HCPCS: 36415; 80053; 80061; 84443; 85025

== ENCOUNTER 2024-01-19 08:56 | Outpatient (AMB) | payer MEDICARE, SELFPAY ==
[2024-01-19 09:01] VITALS: BP 120/62; PULSE 100; O2SAT 98; BMI 22.1
--- NOTE | 2024-01-19 09:01 | MHC.PC.OV ---
Vital Signs 01/19/24 09:01 Height 5 ft 1 in Weight 117 lb BMI 22.1 BP 120/62 Blood Pressure Location Lt brachial Position Sitting Pulse 100 Pulse Source Pulse Oximeter Pulse Oximetry (%) 98 Oxygen Delivery Method Room Air Intake Visit Reasons: Annual Exam Marketing Operations Consultant Required: No Acid Treater: Not Required per policy Accompanied by: Self / Same As Patient Allergies No Known Allergies Allergy (Verified 01/19/24 09:02) Medication List - Last Reconciled 01/19/24 by Jesus Hunter MD fluticasone propionate 50 mcg/actuation 2 sprays intranasal DAILY multivitamin (Daily Multi-Vitamin tablet) 1 tab PO DAILY polyethylene glycol 3350 (Miralax) 17 grams PO DAILY simvastatin 20 mg PO QPM Tobacco use date assessed: 07/29/23 Fall risk assessment: No Falls in past year Last assessed Fall Risk: 01/19/24 Dental Screening Dental Screen Date: 07/29/23 HPI Annual Exam HPI Details hyperlipidemia on rx; compliant [facility] Medical History (Updated 01/15/22 @ 09:18 by Jesus Hunter MD) Hyperlipidemia Surgical History History of breast biopsy Family History Father Myocardial infarction Mother Pancreatic cancer Brother Myocardial infarction Sister Respiratory disease Sister Breast cancer Social History Housing: House Patient Tobacco Use Status: Never used Tobacco e-Cigarette/Vaping Use: Never Used Second Hand Smoke Exposure: No service: No Current occupational status: retired Cognitive needs: No Hearing needs: Yes Vision needs: Yes Questionnaire Thrive Questionnaire Date Thrive assessed: 01/29/23 SHEREE-7 AMB Questionnaire SHEREE-7 Date SHEREE - 7 assessed: 07/29/23 Source: Developed by Drs. Jose Alberto Azar, Latrice Molina, Samuel Marinelli and colleagues, with an educational neal from [employer]. Review of Systems Const Denies chills, Denies fatigue, Denies headache(s) and Denies weight loss Eyes Denies change in vision, Denies diplopia and Denies eye pain ENT Denies vertigo, Denies dizziness, Denies headache(s) and Denies nasal discharge Card Denies chest pain, Denies rapid heart rate and Denies dyspnea on exertion Resp Denies chest congestion, Denies cough, Denies pain with cough and Denies dyspnea on exertion GI Denies abdominal pain, Denies hematochezia and Denies change in bowel habits Musc Denies myalgias, Denies arthralgias and Denies joint swelling Skin/Breast Denies lesions and Denies unusual bruising Neuro Denies vertigo, Denies dizziness, Denies headache(s) and Denies focal weakness Endo Denies fatigue Physical exam (Primary Care) Vital Signs: Last Vital Signs Pulse 100 01/19/24 09:01 BP 120/62 01/19/24 09:01 Pulse Ox 98 01/19/24 09:01 Oxygen Delivery Method Room Air 01/19/24 09:01 BMI result Body Mass Index 22.1 Tobacco/Smoking Status: Tobacco use Status Tobacco use date assessed 07/29/23 01/19/24 09:02 Patient Tobacco Use Status Never used Tobacco 01/19/24 09:02 e-Cigarette/Vaping Use Never Used 01/19/24 09:02 Thrive Assessment: Date of Thrive Assessment Date Thrive assessed 01/29/23 01/19/24 09:02 Const General: cooperative, healthy appearing and no acute distress Orientation/consciousness: oriented to person, oriented to place and oriented to time [facility] Head: Yes normal to inspection, Yes normocephalic and Yes atraumatic Mouth: Normal oral and palatal mucosa present and tongue normal Throat: Yes posterior oropharynx normal and Yes uvula midline Eyes General: appearance normal, both eyes and all related structures Neck Neck: Yes normal visual inspection, Yes full ROM and Yes no lymphadenopathy Thyroid: Thyroid normal Carotids: normal carotid upstroke Chest Chest palpation & inspection: normal inspection of the chest Resp Effort & Inspection: normal respiratory effort and able to speak in complete sentences Auscultation: clear to auscultation bilaterally Cardio Jugular venous distension: no JVD Palpation: normal PMI Rate: regular rate Rhythm: regular rhythm Heart sounds: S1 normal heart sound present and S2 normal heart sound present GI Inspection: Yes normal to inspection Palpation (GI): Soft to palpation and No hepatosplenomegaly present Auscultation: normal bowel sounds General: Yes no CVA tenderness Back/Spine/Pelvis Back: no CVA tenderness Skin General skin exam: no rashes or lesions noted Neuro General: oriented to person, oriented to place and oriented to time Extrem General: Yes normal to inspection and Yes full ROM Assessment and Plan Assessment & Plan (1) Physical exam: Code(s): Z00.00 - Encounter for general adult medical examination without abnormal findings Plan: stable; do labs (2) Hyperlipidemia: Code(s): E78.5 - Hyperlipidemia, unspecified Plan: stable; same rx Orders: Orders Lipid Panel Today Z13.220 - Encounter for screening for lipoid disorders Medications: Refilled fluticasone propionate 50 mcg/actuation administer into each nostril 2 sprays intranasal DAILY 15.8 mL 8RF simvastatin 20 mg PO QPM 90 tabs 8RF Coding Level of Care Code New Pt Prev Care >65yr (34339) Diagnoses Physical exam Z00.00 Hyperlipidemia E78.5
== END 2024-01-19 09:17 | disposition home or self-care (01) ==
PROVIDERS: PCP Internal Medicine; Visit Provider Internal Medicine
DX: Z00.00 Encounter for general adult medical examination without abnormal findings (principal); E78.5 Hyperlipidemia, unspecified
CPT/HCPCS: 99397

== ENCOUNTER 2024-07-16 06:14 | Outpatient (REF) | payer MEDICARE, SELFPAY ==
[2024-07-16 07:49] LABS: Cholesterol 210 mg/dL (<200); HDL Cholesterol 87 mg/dL (>40); LDL Cholesterol Calculated 105 mg/dL (<100); Triglycerides 90 mg/dL (<150)
== END 2024-07-16 06:15 | disposition home or self-care (01) ==
LOC: HO.LAB 06:14
PROVIDERS: PCP Internal Medicine; Visit Provider Internal Medicine
DX: Z13.220 Encounter for screening for lipoid disorders (principal)
CPT/HCPCS: 36415; 80061

== ENCOUNTER 2024-07-21 09:28 | Outpatient (AMB) | payer MEDICARE, SELFPAY ==
--- NOTE | 2024-07-21 09:33 | MHC.PC.OV ---
Vital Signs 07/21/24 09:35 Height 5 ft 1 in Weight 117 lb 4 oz BMI 22.2 BP 110/60 Blood Pressure Location Rt brachial Position Sitting Temp 97.1 F Temp Source Skin Intake Visit Reasons: 6mth f/u Intake Note: Patient is here to follow up on HLD. Linux Administrator Required: No Registered Public Health Nurse: Not Required per policy Accompanied by: Self / Same As Patient Allergies No Known Allergies Allergy (Verified 07/21/24 09:34) Medication List - Last Reconciled 07/21/24 by Jesus Hunter MD fluticasone propionate 50 mcg/actuation 2 sprays intranasal DAILY multivitamin (Daily Multi-Vitamin tablet) 1 tab PO DAILY polyethylene glycol 3350 (Miralax) 17 grams PO DAILY simvastatin 20 mg PO QPM Tobacco use date assessed: 07/21/24 Fall risk assessment: No Falls in past year Last assessed Fall Risk: 07/21/24 Dental Screening Dental Screen Date: 07/21/24 Did you have a dental visit in the last 12 months?: Yes Did you have a dental problem in the last 6 months where you did not have access to dental care?: No Was dental information given to patient?: Patient has dentist HPI 6mth f/u HPI Details hyperlipidemia on rx; some dietary indiscretion [facility] Medical History (Updated 01/15/22 @ 09:18 by Jesus Hunter MD) Hyperlipidemia Surgical History History of breast biopsy Family History Father Myocardial infarction Mother Pancreatic cancer Brother Myocardial infarction Sister Respiratory disease Sister Breast cancer Social History Housing: House Patient Tobacco Use Status: Never used Tobacco e-Cigarette/Vaping Use: Never Used Second Hand Smoke Exposure: No service: No Current occupational status: retired Cognitive needs: No Hearing needs: Yes (Hearing Aide) Vision needs: Yes (Glasses) Questionnaire PHQ-9 Over the last 2 weeks, how often have you been bothered by any of the following problems? 1. Little interest or pleasure in doing things: not at all 2. Feeling down, depressed, or hopeless: not at all 3. Trouble falling or staying asleep, or sleeping too much: not at all 4. Feeling tired or having little energy: not at all 5. Poor appetite or overeating: not at all 6. Feeling bad about yourself - or that you are a failure or have let yourself or your family down: not at all 7. Trouble concentrating on things, such as reading the newspaper or watching television: not at all 8. Moving or speaking so slowly that other people could have noticed. Or the opposite - being so fidgety or restless that you have been moving around a lot more than usual: not at all 9. Thoughts that you would be better off or of hurting yourself in some way: not at all Total score: 0 Depression Screening Interpretation: Negative Depression Screening Done: Yes Source: Developed by Drs. Jose Alberto Azar, Latrice Molina, Samuel Marinelli and colleagues, with an educational neal from [employer]. Thrive Questionnaire Date Thrive assessed: 07/21/24 I am a: Patient What is your living situation today?: I have a steady place to live Within the past 12 months, did the food you bought not last and you didn't have the money to get more?: Never true Within the past 12 months, did you worry whether your food would run out before you got money to buy more?: Never true Do you have trouble paying for medicines?: No Do you have trouble getting transportation to medical appointments?: No Do you have trouble paying your heating and electricity bill?: No Do you have trouble taking care of your child, family member or friend?: No Do you have trouble with day-to-day activities such as bathing, preparing meals, shopping, managing finances, etc.?: No Are you currently unemployed and looking for a job?: No Are you interested in more education?: No Please select the resources that you would like help with: None Currently or been in a relationship where the following occur: No concerns reported THRIVE Score: 0 AUDIT C Alcohol Use Questionnaire (AUDIT-C) 1. How often do you have a drink containing alcohol?: Never Total Score: 0 SHEREE-7 AMB Questionnaire SHEREE-7 Date SHEREE - 7 assessed: 07/21/24 Feeling nervous, anxious, or on edge: 0 = Not at all Not being able to stop or control worryin = Not at all Worrying too much about different things: 0 = Not at all Trouble relaxin = Not at all Being so restless that it is hard to sit still: 0 = Not at all Becoming easily annoyed or irritable: 0 = Not at all Feeling afraid as if something awful might happen: 0 = Not at all Total SHEREE-7 score (0-4 normal; 5-9 mild; 10-14 moderate; 15-21 severe): 0 Source: Developed by Drs. Jose Alberto Azar, Latrice Molina, Samuel Marinelli and colleagues, with an educational neal from [employer]. Review of Systems Const Denies chills, Denies headache(s) and Denies weight loss ENT Denies headache(s) Card Denies chest pain, Denies syncope, Denies irregular heart rhythm and Denies dyspnea Resp Denies chest congestion, Denies cough and Denies dyspnea GI Denies abdominal pain, Denies change in stool character, Denies nausea and Denies vomiting Musc Denies deformity and Denies joint swelling Neuro Denies syncope and Denies headache(s) Physical exam (Primary Care) Vital Signs: Last Vital Signs Temp 97.1 F 07/21/24 09:35 BP 110/60 07/21/24 09:35 BMI result Body Mass Index 22.2 Tobacco/Smoking Status: Tobacco use Status Tobacco use date assessed 07/21/24 07/21/24 09:39 Patient Tobacco Use Status Never used Tobacco 07/21/24 09:39 e-Cigarette/Vaping Use Never Used 07/21/24 09:39 PHQ-9: PHQ-9 Score PHQ-9: Total score 0 07/21/24 09:39 Depression Screening Interpretation: Negative Thrive Assessment: Date of Thrive Assessment Date Thrive assessed 07/21/24 07/21/24 09:39 Currently or been in a relationship where the following occur: No concerns reported Const General: cooperative, comfortable, no acute distress and alert Neck Neck: Yes no lymphadenopathy Thyroid: Thyroid normal Resp Effort & Inspection: normal respiratory effort Auscultation: clear to auscultation bilaterally Percussion: percussion normal Cardio Jugular venous distension: no JVD Palpation: normal PMI Rate: regular rate Rhythm: regular rhythm Heart sounds: S1 normal heart sound present and S2 normal heart sound present GI Inspection: Yes normal to inspection Palpation (GI): No hepatosplenomegaly present Skin General skin exam: no rashes or lesions noted Extrem General: Yes no clubbing, cyanosis or edema Coding Level of Care Code Est Pt Level 3 (96793) Diagnoses Hyperlipidemia E78.5 Assessment & Plan Assessment & Plan (1) Hyperlipidemia: Code(s): E78.5 - Hyperlipidemia, unspecified Category: Medical Plan: stable; same rx
[2024-07-21 09:35] VITALS: BP 110/60; TEMP 36.2; BMI 22.2
== END 2024-07-21 10:26 | disposition home or self-care (01) ==
PROVIDERS: PCP Internal Medicine; Visit Provider Internal Medicine
DX: E78.5 Hyperlipidemia, unspecified (principal)

== ENCOUNTER → 2024-07-21 09:28 | Outpatient (BNVA) | payer MEDICARE, SELFPAY | PROVIDERS: PCP Internal Medicine; Visit Provider Internal Medicine | DX: E78.5 Hyperlipidemia, unspecified (principal) | CPT/HCPCS: 99212 ==

== ENCOUNTER 2024-09-05 16:35 | Emergency (ER) | payer MEDICARE, SELFPAY ==
--- NOTE | ~2024-09-05 | CT_ITS ---
CLINICAL HISTORY: fall, tender radial head, R O occult elbow fract CT left elbow without contrast Comparison: CR - XR ELBOW LT 2V - 09/05/24 20:19 EDT Findings: Left elbow joint effusion. No fracture identified though the study is limited due to osseous demineralization and insufficient photon generation. The osseous structures are in normal alignment. Mild degenerative changes. No soft tissue abnormality. IMPRESSION: 1. Left elbow joint effusion. 2. No fracture identified though the study is limited due to osseous demineralization and insufficient photon generation. This document has been electronically signed by: Henry Mabry MD on 09/05/2024 23:42:57
--- NOTE | ~2024-09-05 | XR_ITS ---
CLINICAL HISTORY: elbow buirse fall 3 view left elbow Comparison: None Findings: No acute fractures. Normal alignment. No significant arthritic change or erosions. Small joint effusion. No radiopaque foreign body. IMPRESSION: Small joint effusion but no obvious fracture. This document has been electronically signed by: Henry Mabry MD on 09/05/2024 21:38:41
[2024-09-05 16:58] VITALS: BP 165/84; PULSE 97; RESP 20; TEMP 37.2; O2SAT 99; BMI 23.5
--- NOTE | 2024-09-05 17:59 | ED_ITS ---
HPI - Extremity Problem General Chief complaint: Extremity Injury, Upper Stated complaint: Left elbow pain / sob Time Seen by Provider: 09/05/24 17:57 Related Data Home Medications ?Medication ?Instructions ?Recorded ?Confirmed multivitamin (Daily Multi-Vitamin 1 tab PO DAILY 09/08/20 07/21/24 tablet) Previous Rx's ?Medication ?Instructions ?Recorded polyethylene glycol 3350 17 gram 17 g PO DAILY #100 ea 07/18/22 oral powder packet (Miralax) fluticasone propionate 50 2 spray intranasal DAILY #15.8 mL 01/19/24 mcg/actuation nasal spray,suspension simvastatin 20 mg tablet 20 mg PO QPM #90 tabs 01/19/24 Allergies Allergy/AdvReac Type Severity Reaction Status Date / Time No Known Allergies Allergy Verified 09/05/24 17:01 [facility] Past Medical History Medical History (Updated 01/15/22 @ 09:18 by Jesus Hunter MD) Hyperlipidemia Surgical History History of breast biopsy Family History Family History Father Myocardial infarction Mother Pancreatic cancer Brother Myocardial infarction Sister Respiratory disease Sister Breast cancer Social History Social History Housing: House Alcohol intake: current Alcohol intake frequency: a few times a week Patient Tobacco Use Status: Never used Tobacco Smoked in Last 30 Days: No e-Cigarette/Vaping Use: Never Used Second Hand Smoke Exposure: No Use of substances other than those prescribed or required for medical reasons: No Do you have a plan to hurt others: No Plan service: No Current occupational status: retired Cognitive needs: No Hearing needs: Yes (Hearing Aide) Vision needs: Yes (Glasses) Physical Exam Vital Signs: Vital Signs: Last Vital Signs Temp 98.9 F 09/05/24 16:58 Pulse 87 09/05/24 17:54 Resp 18 09/05/24 17:54 BP 151/76 H 09/05/24 17:54 Pulse Ox 99 09/05/24 17:54 O2 Del Method Nasal Cannula 09/05/24 17:54 O2 Flow Rate 2 09/05/24 17:54 BMI result Body Mass Index 23.5 Discharge Plan Discharge Prescriptions: No Action multivitamin [Daily Multi-Vitamin] Tablet 1 tab PO DAILY simvastatin 20 mg tablet 20 mg PO QPM Qty: 90 8RF fluticasone propionate 50 mcg/actuation spray,suspension 2 spray intranasal DAILY Qty: 15.8 8RF Rx Instructions: administer into each nostril polyethylene glycol 3350 [Miralax] 17 gram powder in packet 17 g PO DAILY Qty: 100 3RF Print Language: Yakut
--- NOTE | 2024-09-05 21:54 | ED_ITS ---
HPI - Extremity Problem General Chief complaint: Extremity Injury, Upper Stated complaint: Left elbow pain / sob Time Seen by Provider: 09/05/24 17:57 Source: patient and family ( patient was daughter, Audrey) Mode of arrival: ambulatory Limitations: no limitations History of Present Illness ED Provider: Dr. Elbert Alexander HPI Narrative: 84-year-old female with a history of hyperlipidemia who was brought to emergency department by her daughter for evaluation of left elbow pain. The patient does not remember falling or injuring her elbow. Apparently she called her daughter asking her daughter to bring some Tylenol to her house since she was having pain. The daughter is an orthopedic x-ray tech and was concerned that the patient had an area of ecchymosis to her elbow and limited range of motion of her elbow therefore she was brought to emergency department for evaluation. The patient denies being ill in any way in the last several days. She denied fever, chills, headache, neck pain, nausea, vomiting. Related Data Home Medications ?Medication ?Instructions ?Recorded ?Confirmed multivitamin (Daily Multi-Vitamin 1 tab PO DAILY 09/08/20 07/21/24 tablet) Previous Rx's ?Medication ?Instructions ?Recorded polyethylene glycol 3350 17 gram 17 g PO DAILY #100 ea 07/18/22 oral powder packet (Miralax) fluticasone propionate 50 2 spray intranasal DAILY #15.8 mL 01/19/24 mcg/actuation nasal spray,suspension simvastatin 20 mg tablet 20 mg PO QPM #90 tabs 01/19/24 Allergies Allergy/AdvReac Type Severity Reaction Status Date / Time No Known Allergies Allergy Verified 09/05/24 17:01 Review of Systems Review of Systems: Yes all other systems are reviewed and are negative [facility] Past Medical History Medical History (Updated 09/06/24 @ 00:02 by Gideon Morrison) Hyperlipidemia Surgical History History of breast biopsy Family History Family History Father Myocardial infarction Mother Pancreatic cancer Brother Myocardial infarction Sister Respiratory disease Sister Breast cancer Social History Social History Housing: House Patient Tobacco Use Status: Never used Tobacco e-Cigarette/Vaping Use: Never Used Second Hand Smoke Exposure: No Advance Directives: No Advance Directives Information Provided: Yes Do you have a plan to hurt others: No Plan service: No Current occupational status: retired Cognitive needs: No Hearing needs: Yes (Hearing Aide) Vision needs: Yes (Glasses) Physical Exam Vital Signs: Vital Signs: Last Vital Signs Temp 97.9 F 09/05/24 22:57 Pulse 89 09/05/24 22:57 Resp 18 09/05/24 22:57 BP 172/74 H 09/05/24 22:57 Pulse Ox 97 09/05/24 22:57 O2 Del Method Room Air 09/05/24 22:57 BMI result Body Mass Index 23.5 Vital signs revealed an elevated blood pressure of 165/84 otherwise unremarkable Exam: General: Awake, alert, no distress, answers all questions appropriately. Extremity exam: Left upper: Patient has ecchymosis and soft tissue swelling to the left elbow extending both proximally and distally. Patient has tenderness palpation over the radial head with increased pain with supination and pronation. She does have pain with extension but not with flexion of her elbow. There is no tenderness palpation over the olecranon process, no bursa swelling. No tenderness palpation of her left shoulder. Extremities neurovascularly intact Right upper: Normal Medications Administered Discontinued Medications Generic Name Dose Route Start Last Admin Trade Name Freq PRN Reason Stop Dose Admin Acetaminophen 975 mg 09/05/24 22:11 09/05/24 22:23 Acetaminophen 325 Mg Tablet PO 09/05/24 22:12 975 mg ONCE STA Administration Medical Decision Making Medical Decision Making MDM Narrative: 84-year-old female with a history of hyperlipidemia who was brought to emergency department by her daughter for evaluation of left elbow pain. patient does not recall any injury or fall. Patient was exam did reveal ecchymosis with soft tissue swelling over the left elbow with increased tenderness palpation over the radial head, increased pain with supination pronation and extension of the elbow but not flexion. No tenderness palpation over the olecranon process. Differential diagnosis: Includes but is not limited to Left elbow fracture, left elbow contusion, occult fracture Course: The patient was physical examination did reveal limited range of motion secondary to significant pain. X-rays did not reveal any acute fracture. I was concerned that there may be an occult fracture therefore I ordered a CT scan of the elbow. Radiologist noted a left elbow joint effusion but no acute. Seen however radiologist noted that the study was limited due to demineralization. The patient was placed in sling. Patient and her daughter were given printed and verbal instructions in the patient was discharged home. Admission/Observation Consideration of admission/observation: Escalation of care including admission/observation considered ( No) Independent Interpretation I performed an independent interpretation of an: Plain X-Ray Interpretation: my independent interpretation patient's right elbow was as follows: No acute fracture seen Radiology Impression Discussion of test interpretation with radiology: I have reviewed the radiologist's reading. Radiologist Impression: 3 view left elbow Comparison: None Findings: No acute fractures. Normal alignment. No significant arthritic change or erosions. Small joint effusion. No radiopaque foreign body. IMPRESSION: Small joint effusion but no obvious fracture. This document has been electronically signed by: Henry Mabry MD on 09/05/2024 21:38:41 CT left elbow without contrast Comparison: CR - XR ELBOW LT 2V - 09/05/24 20:19 EDT Findings: Left elbow joint effusion. No fracture identified though the study is limited due to osseous demineralization and insufficient photon generation. The osseous structures are in normal alignment. Mild degenerative changes. No soft tissue abnormality. IMPRESSION: 1. Left elbow joint effusion. 2. No fracture identified though the study is limited due to osseous demineralization and insufficient photon generation. This document has been electronically signed by: Henry Mabry MD on 09/05/2024 23:42:57 Independent Historian Clinical information obtained from an independent historian. History obtained from or confirmed by: Other ( daughter) Chronic Conditions Patient?s care impacted by: Other ( hyperlipidemia) Discharge Plan Discharge Clinical Impression: Contusion of elbow, left Patient Disposition: Home, Self-Care Additional Instructions: The plain x-rays of your elbow did not reveal any broken bones however based on your exam I am concerned that you might have a fracture that could not be seen by plain x-rays. A CT scan without IV contrast of your elbow. I will call your daughter with these results. Wear the sling or at least 1 week or until you follow-up with the orthopedic group. Apply ice to the area that hurts on your elbow for 15 minutes 4 to 6 times a day for the next 2-3 days to help reduce the swelling and pain. Take extra-strength Tylenol 500 mg pills, 2 pills every 6 hours as needed for pain. Follow-up with our orthopedic group tomorrow to make a follow-up appointment within 1 week. Please return to the emergency department if your symptoms get worse or if you develop any symptoms that are concerning to you. Prescriptions: No Action multivitamin [Daily Multi-Vitamin] Tablet 1 tab PO DAILY simvastatin 20 mg tablet 20 mg PO QPM Qty: 90 8RF fluticasone propionate 50 mcg/actuation spray,suspension 2 spray intranasal DAILY Qty: 15.8 8RF Rx Instructions: administer into each nostril polyethylene glycol 3350 [Miralax] 17 gram powder in packet 17 g PO DAILY Qty: 100 3RF Referrals: Chilango Renee MD [Physician] - 1 week ( fall, ecchymosis and contusion to left elbow, significant pain with minimal joint movement of the elbow) Interventions: ED Discharge Assessment Last Done: 09/05/24 22:57 Discharge Date/Time: 09/05/24 22:58 Print Language: Mozambican
[2024-09-05] MEDS: Acetaminophen 325 MG TABLET 975 MG PO (22:23)
[2024-09-05 22:56] VITALS: BP 172/74; PULSE 89; RESP 18; TEMP 36.6; O2SAT 97
[2024-09-05 22:57] VITALS: BP 172/74; PULSE 89; RESP 18; TEMP 36.6; O2SAT 97
== END 2024-09-05 22:58 | disposition home or self-care (01) ==
PROVIDERS: Emergency Provider Emergency Medicine Emergency Medical Services; PCP Internal Medicine
DX: S50.02XA Contusion of left elbow, initial encounter (principal); M25.522 Pain in left elbow; R06.02 Shortness of breath; X58.XXXA Exposure to other specified factors, initial encounter; Y93.9 Activity, unspecified; Y92.9 Unspecified place or not applicable; Y99.8 Other external cause status
CPT/HCPCS: 73080; 73200; 99284

== ENCOUNTER → 2024-09-05 19:54 | Outpatient (BNV) | payer MEDICARE, SELFPAY | PROVIDERS: Emergency Provider Emergency Medicine Emergency Medical Services; PCP Internal Medicine; Visit Provider Student in an Organized Health Care Education/Training Program | DX: M25.422 Effusion, left elbow (principal) | CPT/HCPCS: 73080; 73200 ==

== ENCOUNTER 2024-09-13 08:53 | Outpatient (REF) | payer MEDICARE, SELFPAY ==
--- NOTE | ~2024-09-13 | XR_ITS ---
EXAMINATION: XR ELBOW 3 VIEWS LEFT HISTORY: M25.522 - Pain in left elbow COMPARISON: Comparison is made with the prior examination dated 09/05/2024. FINDINGS: Three views of the left elbow are submitted. The bones are osteopenic. There is no fracture or dislocation. The joint spaces are preserved. The soft tissues are unremarkable. XR/XR elbow LT min 3V IMPRESSION: Unremarkable examination of the left elbow. Electronically signed by: Jose Alberto Tidwell MD 09/13/2024 01:29 PM EDT
== END 2024-09-13 08:54 | disposition home or self-care (01) ==
LOC: HO.HOSX 08:53
DX: M25.522 Pain in left elbow (principal); S50.02XD Contusion of left elbow, subsequent encounter
CPT/HCPCS: 73080; 99202

== ENCOUNTER 2024-09-13 11:01 | Outpatient (AMB) | payer MEDICARE, SELFPAY ==
[2024-09-13 11:08] VITALS: BMI 23.4
--- NOTE | 2024-09-13 11:08 | MHC.OFFVIS ---
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 Patient denies possible injuries to the elbow. Per ED note, the daughter is an orthopedic x-ray tech and was concerned that the patient had an area of ecchymosis to her elbow and limited range of motion. Patient reports she is feeling better today and she uses her sling when she needs it to provide relief and comfort. 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 Valentin she denies any injury or trauma to the left elbow in since presenting to the emergency department on 09/05/2024 her symptoms have completely resolved. She reports that she woke up and she was unable to fully flex and extend the arm and was unable to pronate or supinate at all due to pain. She also reports that there was accompanied ecchymosis along the dorsal aspect of the upper extremity and the elbow. [facility] Medical History (Updated 09/13/24 @ 11:38 by Nighat Phelps PA-C) Hyperlipidemia Surgical History History of breast biopsy Family History Father Myocardial infarction Mother Pancreatic cancer Brother Myocardial infarction Sister Respiratory disease Sister Breast cancer Social History Housing: House Patient Tobacco Use Status: Never used Tobacco e-Cigarette/Vaping Use: Never Used Second Hand Smoke Exposure: No service: No Current occupational status: retired Cognitive needs: No Hearing needs: Yes (Hearing Aide) Vision needs: Yes (Glasses) Review of Systems Const All systems reviewed & are unremarkable except as noted in HPI and below Physical Exam Vital Signs: BMI result Body Mass Index 23.4 Const General: cooperative, healthy appearing and no acute distress Resp Effort & Inspection: normal respiratory effort and able to speak in complete sentences Cardio Rate: regular rate Peripheral pulses: Peripheral pulses 2+ throughout Skin Lesions: no lesions Rashes: no rashes Extrem Other: Left elbow: Normal to inspection. No ecchymosis, erythema, or edema. Mild tenderness to palpation over the olecranon. No tenderness to the medial or lateral epicondyle. NVI. Assessment & Plan Assessment & Plan (1) Osteoarthritis of left elbow: Code(s): M19.022 - Primary osteoarthritis, left elbow Category: Medical Plan Ms. Valentin she denies any injury or trauma to the left elbow in since presenting to the emergency department on 09/05/2024 her symptoms have completely resolved. She reports that she woke up and she was unable to fully flex and extend the arm and was unable to pronate or supinate at all due to pain. She also reports that there was accompanied ecchymosis along the dorsal aspect of the upper extremity and the elbow. While patient was in the office today I have reviewed the x-ray images as well as CT scan from 09/05/2024. There is no acute fracture or dislocation. Patient's symptoms have fully resolved. There is no additional orthopedic intervention that is warranted at this time. She will follow up p.r.n., sooner if needed. X-rays of the left elbow which were obtained while in the office today and were reviewed by me, Nighat Phelps PA-C, were negative for any acute fracture or dislocation. Osteoarthritis of the left elbow noted. Orders: Orders XR elbow LT min 3V Today M25.522 - Pain in left elbow Coding Level of Care Code New Pt Level 3 (09205) Diagnoses Osteoarthritis of left elbow M19.022
== END 2024-09-13 11:31 | disposition home or self-care (01) ==
PROVIDERS: PCP Internal Medicine; Visit Provider Physician Assistant
DX: M19.022 Primary osteoarthritis, left elbow (principal)
CPT/HCPCS: 99203

== ENCOUNTER → 2024-09-13 11:07 | Outpatient (BNV) | payer MEDICARE, SELFPAY | PROVIDERS: Visit Provider Radiology Diagnostic Radiology | DX: M25.522 Pain in left elbow (principal) | CPT/HCPCS: 73080 ==

== ENCOUNTER 2024-09-23 09:10 | Outpatient (REF) | payer SELFPAY ==
--- NOTE | 2024-09-23 09:43 | MHC.AU.HA3 ---
Hearing Instrument Follow-Up- Binaural Date of Visit: 09/23/24 Right Ear: Gunnar, Model, Color, Serial Number: Ricky Gee [id number] SN: [id number] Color: pPink Bleach Range Operator Repair Warranty: 03/17/2024 Bleach Range Operator Loss and Damage Warranty: 03/17/2024 [facility] Service Plan: exp Battery Size: 13 Type of Wax Guard: HearClear Dispensed By: [facility] Date of Fittin02/23/2021 Left Ear: Gunnar, Model, Color, Serial Number: Ricky Gee [id number] SN: [id number] Color: [place] Bleach Range Operator Repair Warranty: 03/17/2024 Bleach Range Operator Loss and Damage Warranty: 03/17/2024 [facility] Service Plan: exp Battery Size: 13 Type of Wax Guard: HearClear Dispensed By: [facility] Date of Fittin02/23/2021 Follow-Up Summary: Seen for maintenance, reports hearing aids not working as well as they should be. Found wax guards occluded. Cleaned aids, replaced wax guards and arcadio covers, ran through dehumidifier. Listening check positive. Isis reports improvement. Recommendations: Recommendations: Hearing instrument follow-up or maintenance as needed. Diagnosis Code(s): Primary Diagnosis: H90.3 Bilateral Sensorineural Hearing Loss Signature: Provider: Christi Welsh, [facility]
== END 2024-09-23 09:11 | disposition home or self-care (01) ==
LOC: HO.HAP 09:10
DX: Z46.1 Encounter for fitting and adjustment of hearing aid (principal); H90.3 Sensorineural hearing loss, bilateral
CPT/HCPCS: 92593

== ENCOUNTER 2025-01-13 10:48 | Outpatient (AMB) | payer MEDICARE, SELFPAY ==
[2025-01-13 10:56] VITALS: BP 136/78; PULSE 93; O2SAT 98; BMI 23.8
--- NOTE | 2025-01-13 10:56 | MHC.PC.OV ---
Vital Signs 01/13/25 10:56 Height 4 ft 11 in Weight 118 lb BMI 23.8 BP 136/78 Blood Pressure Location Lt brachial Position Sitting Pulse 93 Pulse Source Pulse Oximeter Pulse Oximetry (%) 98 Intake Visit Reasons: Transfer from [address] Water Filter Cleaner Required: No Accompanied by: Self / Same As Patient Allergies No Known Allergies Allergy (Verified 01/13/25 11:13) Medication List - Last Reconciled 01/13/25 by Livia Nava PA-C fluticasone propionate 50 mcg/actuation 2 sprays intranasal DAILY multivitamin (Daily Multi-Vitamin tablet) 1 tab PO DAILY polyethylene glycol 3350 (Miralax) 17 grams PO DAILY simvastatin 20 mg PO QPM Tobacco use date assessed: 01/13/25 Last assessed Fall Risk: 01/13/25 Dental Screening Dental Screen Date: 01/13/25 HPI Transfer from [address] HPI Details 84 year old female with past medical history of hypercholesterolemia and allergic rhinitis last seen by Dr. Hunter 06/2024 coming in for MIRANDA. In review of the notes, [facility] elbow arthritis follow up as needed. Patient tells us today she is feeling generally well and has no acute concerns. She exercises regularly with daily exercise DVDs which are low impact and low fall risk. [facility] Medical History Hyperlipidemia Surgical History History of breast biopsy Family History Father Myocardial infarction Mother Pancreatic cancer Brother Myocardial infarction Sister Respiratory disease Sister Breast cancer Social History Housing: House Patient Tobacco Use Status: Never used Tobacco e-Cigarette/Vaping Use: Never Used Second Hand Smoke Exposure: No service: No Current occupational status: retired Cognitive needs: No Hearing needs: Yes (Hearing Aide) Vision needs: Yes (Glasses) Questionnaire PHQ-9 Over the last 2 weeks, how often have you been bothered by any of the following problems? 1. Little interest or pleasure in doing things: not at all 2. Feeling down, depressed, or hopeless: not at all 3. Trouble falling or staying asleep, or sleeping too much: not at all 4. Feeling tired or having little energy: not at all 5. Poor appetite or overeating: not at all 6. Feeling bad about yourself - or that you are a failure or have let yourself or your family down: not at all 7. Trouble concentrating on things, such as reading the newspaper or watching television: not at all 8. Moving or speaking so slowly that other people could have noticed. Or the opposite - being so fidgety or restless that you have been moving around a lot more than usual: not at all 9. Thoughts that you would be better off or of hurting yourself in some way: not at all Total score: 0 Depression Screening Interpretation: Negative Depression Screening Done: Yes 64582 - PHQ-9 Billing: Yes Source: Developed by Drs. Jose Alberto Azar, Latrice Molina, Samuel Marinelli and colleagues, with an educational neal from [employer]. Thrive Questionnaire Date Thrive assessed: 07/21/24 I am a: Patient What is your living situation today?: I have a steady place to live Within the past 12 months, did the food you bought not last and you didn't have the money to get more?: Never true Within the past 12 months, did you worry whether your food would run out before you got money to buy more?: Never true Do you have trouble paying for medicines?: No Do you have trouble getting transportation to medical appointments?: No Do you have trouble paying your heating and electricity bill?: No Do you have trouble taking care of your child, family member or friend?: No Do you have trouble with day-to-day activities such as bathing, preparing meals, shopping, managing finances, etc.?: No Are you currently unemployed and looking for a job?: Yes Are you interested in more education?: No Please select the resources that you would like help with: None Currently or been in a relationship where the following occur: No concerns reported THRIVE Score: 0 AUDIT C Alcohol Use Questionnaire (AUDIT-C) 1. How often do you have a drink containing alcohol?: Never Total Score: 0 SHEREE-7 AMB Questionnaire SHEREE-7 Date SHEREE - 7 assessed: 07/21/24 Feeling nervous, anxious, or on edge: 0 = Not at all Not being able to stop or control worryin = Not at all Worrying too much about different things: 0 = Not at all Trouble relaxin = Not at all Being so restless that it is hard to sit still: 0 = Not at all Becoming easily annoyed or irritable: 0 = Not at all Feeling afraid as if something awful might happen: 0 = Not at all Total SHEREE-7 score (0-4 normal; 5-9 mild; 10-14 moderate; 15-21 severe): 0 Source: Developed by Drs. Jose Alberto Azar, Latrice Molina, Samuel Marinelli and colleagues, with an educational neal from [employer]. SHEREE-7 Assessment Billing SHEREE-7 Assessment Tool: SHEREE-7 Assessment 76051 Review of Systems Const Denies body aches, Denies chills, Denies fever(s), Denies headache(s) and Denies poor appetite Eyes Reports no additional complaints ENT Denies dysphagia, Denies dizziness, Denies headache(s) and Denies odynophagia Card Denies chest pain, Denies syncope, Denies edema, Denies irregular heart rhythm, Denies lightheadedness and Denies dyspnea Resp Denies cough and Denies dyspnea GI Denies abdominal pain, Reports constipation, Denies dysphagia, Denies diarrhea, Denies nausea, Denies odynophagia and Denies vomiting Reports no additional complaints Musc Reports no additional complaints and Denies abnormal gait Skin/Breast Reports system reviewed and no additional complaints, except as documented Neuro Denies abnormal gait, Denies dizziness, Denies syncope and Denies headache(s) Psych Reports no additional complaints Physical exam (Primary Care) Vital Signs: Last Vital Signs Pulse 93 01/13/25 10:56 BP 136/78 01/13/25 10:56 Pulse Ox 98 01/13/25 10:56 BMI result Body Mass Index 23.8 Tobacco/Smoking Status: Tobacco use Status Tobacco use date assessed 01/13/25 01/13/25 11:00 Patient Tobacco Use Status Never used Tobacco 01/13/25 11:00 e-Cigarette/Vaping Use Never Used 01/13/25 11:00 PHQ-9: PHQ-9 Score PHQ-9: Total score 0 01/13/25 11:00 Depression Screening Interpretation: Negative Thrive Assessment: Date of Thrive Assessment Date Thrive assessed 07/21/24 01/13/25 11:00 Currently or been in a relationship where the following occur: No concerns reported Const General: cooperative, healthy appearing, comfortable and no acute distress Orientation/consciousness: patient oriented x3 HENMT Head: Yes normocephalic Ears: hearing grossly normal bilaterally General nose exam: Normal external nose present Face and sinus: Yes normal facial exam and Yes sinuses nontender Mouth: Normal oral and palatal mucosa present and tongue normal Throat: Yes posterior oropharynx normal Eyes General: appearance normal, both eyes and all related structures Conjunctivae: conjunctivae normal Pupils: Equal, round and reactive pupils present EOM: EOMs intact bilaterally and No Nystagmus present Neck Neck: Yes full ROM and Yes no lymphadenopathy Chest Chest palpation & inspection: normal inspection of the chest Resp Effort & Inspection: normal respiratory effort Auscultation: clear to auscultation bilaterally, no crackles, no rales, no rhonchi and no wheezes Cardio Rate: regular rate Rhythm: regular rhythm Peripheral pulses: radial pulses present and dorsalis pedis present GI Inspection: Yes normal to inspection and No Abdominal wall edema Palpation (GI): Soft to palpation, not firm and nontender Auscultation: normal bowel sounds Rectal Exam - Female: deferred General: Yes no CVA tenderness Back/Spine/Pelvis Back: no CVA tenderness Skin General skin exam: no rashes or lesions noted Neuro General: patient oriented x3 Cranial nerves: Yes Equal, round and reactive pupils present, Yes Midline tongue present, Yes Ability to bilaterally elevate shoulders present and No Nystagmus present Gait exam (Neuro): Normal gait present Extrem General: Yes normal to inspection, Yes full ROM and No edema Psych Speech and movement: Normal speech and movement present Affect: normal affect Attitude: cooperative Insight: Good insight present (Psych) Judgement: Good judgement present (Psych) Coding Level of Care Code Est Pt Prev Care >65y(19497) Diagnoses Physical exam Z00.00 Hyperlipidemia E78.5 SNHL (sensorineural hearing loss) H90.5 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 She is due for bone density scan in orders were placed today. I ordered for updated blood work. Plan to follow up in 6 months or sooner as needed. Healthy diet and regular exercise is encouraged. (2) Hyperlipidemia: Code(s): E78.5 - Hyperlipidemia, unspecified Category: Medical Plan: Avoid foods that are high in cholesterol such as red meat, fried foods, eggs and baked goods. Triglyceride goal of less than 150 and LDL goal of less than 130. Continue on simvastatin (3) SNHL (sensorineural hearing loss): Comment: hearing aids Code(s): H90.5 - Unspecified sensorineural hearing loss Category: Medical Plan: Continue to follow with hearing center and continue with the use of hearing aids. Bilateral ears were cleaned today using lighted curette. (4) Osteoarthritis of left elbow: Code(s): M19.022 - Primary osteoarthritis, left elbow Category: Medical Plan: Follow up as needed with orthopedics Plan This note was constructed using voice recognition software. While every effort has been made to ensure accuracy and inventory controller, still areas may have been included sometimes these areas may affect the content or meeting of the given symptoms. Total time spent caring for the patient today was 30 minutes. This includes time spent before the visit reviewing the chart, time spent during the visit, and time spent after the visit and documentation. Patient was informed and verbally consented to the use of an ambient scribe for clinic note documentation during this visit. Orders: Orders Complete Blood Count Auto Diff Today J30.9 - Allergic rhinitis, unspecified, Z13.0 - Encounter for screening for diseases of the blood and blood-forming organs and certain disorders involving the immune mechanism Vitamin B12 and Folate Today Z13.21 - Encounter for screening for nutritional disorder Free T4 (Free Thyroxine) Today Z13.29 - Encounter for screening for other suspected endocrine disorder Lipid Panel Today E78.00 - Pure hypercholesterolemia, unspecified Comprehensive Met. Panel Today E78.5 - Hyperlipidemia, unspecified, J30.9 - Allergic rhinitis, unspecified TSH reflex Free T4 Today Z13.29 - Encounter for screening for other suspected endocrine disorder Vitamin D 25-OH Total Today Z13.21 - Encounter for screening for nutritional disorder XR DEXA axial skeleton Today Z78.0 - Asymptomatic menopausal state
--- OUTSIDE RECORDS SUMMARY | 2025-01-13 11:31 | XMS_ITS | Clinical Summary ---
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 Name Role Phone Unavailable Primary Care Provider Unavailabl e Immunizations Immunization Administration Dates Next Due Influenza, seasonal, injectable, preservative fr ee 03/23/2024 Social History Tobacco Use Types Packs/Day Years Used Date Smoking Tobacco: Never Assessed Comments Unknown Sex and Gender Information Value Date Recorded Sex Assigned at Female 03/18/2024 2:26 PM EDT Legal Sex Female 2:24 PM EDT Gender Identity Female 03/18/2024 2:26 PM EDT Sexual Orientation Straight 03/18/2024 2: 26 PM EDT Plan of Treatment Health Maintenance Due Date Last Done Comments Depression Screening 1940 SDOH Screening 1940 Alcohol/Substance Use Screening 1951 Tobacco Screening 1952 DTaP/Tdap/Td Vaccines (1 - Tdap) 1958 Pneumococcal Vaccine: 50+ Ye ars (1 of 1 - PCV) 1989 Zoster Vaccines (1 of 2) 1989 RSV Patients and Pa tients Aged 60 years or older (1 - 1-dose 75+ series) 2014 COVID-19 Vaccine ( - 2023-2 5 season) 2024 Influenza Vaccine (#1) 2025 03/23/2024 HIB Vaccines Aged Out No longer eligi ble based on patient's age to complete this topic HPV Vaccines Aged Out No longer eligi ble based on patient's age to complete this topic Hepatitis A Vaccines Aged Out No long er eligible based on patient's age to complete this topic Hepatitis B Vaccines Aged Out No long er eligible based on patient's age to complete this topic IPV Vaccines Aged Out No longer eligi ble based on patient's age to complete this topic Meningococcal B Vaccine Aged Out No l onger eligible based on patient's age to complete this topic Meningococcal Vaccine Aged Out No jani amy eligible based on patient's age to complete this topic RSV under 20 months Aged Out No longe r eligible based on patient's age to complete this topic Rotavirus Vaccines Aged Out No longer eligible based on patient's age to complete this topic Insurance [place] [address] , [address] [place] [id number]
== END 2025-01-13 11:36 | disposition home or self-care (01) ==
LOC: HO.HMCH 10:49
DX: Z00.00 Encounter for general adult medical examination without abnormal findings (principal); E78.5 Hyperlipidemia, unspecified; H90.5 Unspecified sensorineural hearing loss; M19.022 Primary osteoarthritis, left elbow

== ENCOUNTER → 2025-01-13 10:48 | Outpatient (BNVA) | payer MEDICARE, SELFPAY | DX: Z00.00 Encounter for general adult medical examination without abnormal findings (principal); E78.00 Pure hypercholesterolemia, unspecified; J30.9 Allergic rhinitis, unspecified; H90.5 Unspecified sensorineural hearing loss; M19.022 Primary osteoarthritis, left elbow; Z78.0 Asymptomatic menopausal state | CPT/HCPCS: 96127; 99397 ==

== ENCOUNTER 2025-01-14 06:13 | Outpatient (REF) | payer MEDICARE, SELFPAY ==
[2025-01-14 06:26] LABS: MANUAL DIFF FLAG NO
[2025-01-14 07:09] LABS: Hematocrit 38.3 % (37.0-47.0); Hemoglobin 12.9 g/dl (12.0-16.0); Imm Gran Abs Auto 0.01 X10*3/uL (0.00-0.03); Imm Gran Pct Auto 0.2 % (0.0-0.4); Lymphocytes Absolute Auto 2.6 X10*3/uL (1.2-4.9); Mean Corpuscular HGB Conc 33.7 g/dl (31.0-35.0); Mean Corpuscular Hemoglobin 30.0 pg (27.0-33.0); Mean Corpuscular Volume 89.1 fL (80.0-98.0); NRBC Abs Auto 0.000 X10*3/uL (0.0-0.012); NRBC Pct Auto 0.0 /100WBC (0.0-0.2); Platelet Count 244 X10*3/uL (160-400); Red Blood Count 4.30 X10*6/uL (4.20-5.50); White Blood Count 5.8 X10*3/uL (4.8-10.8)
[2025-01-14 07:31] LABS: Alanine Aminotransferase 17 U/L (0-31); Albumin Level 4.2 g/dL (3.5-5.0); Alkaline Phosphatase 107 U/L (39-117); Anion Gap 12 (12-20); Aspartate Amino Transferase 26 U/L (5-31); Blood Urea Nitrogen 13 mg/dL (9-16); Calcium 9.2 mg/dL (8.4-10.2); Carbon Dioxide 27 mmol/L (22-29); Chloride 107 mmol/L (96-108); Cholesterol 214 mg/dL (<200); Estimated Glomerular Filt Rate 57; HDL Cholesterol 76 mg/dL (>40); Potassium 4.0 mmol/L (3.3-5.1); Sodium 142 mmol/L (135-145); Total Protein 6.5 g/dL (6.5-8.0); Triglycerides 68 mg/dL (<150)
[2025-01-14 07:50] LABS: Free T4 (Free Thyroxine) 0.89 ng/dL (0.71-1.85)
[2025-01-14 07:56] LABS: Folate 14.4 ng/mL (> or = 4.0); Vitamin B12 342 pg/mL (200-900)
== END 2025-01-14 06:14 | disposition home or self-care (01) ==
LOC: HO.LAB 06:13
DX: J30.9 Allergic rhinitis, unspecified (principal); Z13.0 Encounter for screening for diseases of the blood and blood-forming organs and certain disorders involving the immune mechanism; E78.00 Pure hypercholesterolemia, unspecified; E78.5 Hyperlipidemia, unspecified; Z13.21 Encounter for screening for nutritional disorder; Z13.29 Encounter for screening for other suspected endocrine disorder
CPT/HCPCS: 36415; 80053; 80061; 82306; 82607; 82746; 84439; 84443; 85025

== ENCOUNTER 2025-03-08 10:41 | Outpatient (REF) | payer MEDICARE, SELFPAY ==
--- NOTE | ~2025-03-08 | MM_ITS ---
EXAMINATION: DXA BONE DENSITY AXIAL HISTORY: Z78.0 - Asymptomatic menopausal state TECHNIQUE: beModel Dual energy absorptiometry (DEXA) of the lumbar spine, total left hip, and femoral neck was performed. COMPARISON: Comparison is made with the prior examination dated 02/23/2010. FINDINGS: The bone mineral density of the lumbar spine is 1.046 g/cm2, corresponding to a T-score of -1.1, and a Z-score of 1.2. This is indicative of osteopenia. This represents a BMD change of -5.9% compared to the prior exam. This is statistically significant. The bone mineral density of the left total hip is 0.740 g/cm2, corresponding to a T-score of -2.1, and a Z-score of 0.5. This is indicative of osteopenia. This represents a BMD change of -10.8% compared to the prior exam. This is statistically significant. The bone mineral density of the left femoral neck is 0.824 g/cm2, corresponding to a T-score of -1.5, and a Z-score of 1.1. This is indicative of osteopenia. This represents a BMD change of 7.3% compared to the prior exam. FRACTURE RISK: The FRAX index suggests a ten year probability of major osteoporotic fracture of 12.9%, and of hip fracture 3.6%. MM/XR DEXA axial skeleton IMPRESSION: Based on bone mineral density, and according to World Health Organization (WHO) criteria, the diagnosis is consistent with osteopenia. Statistically, 68% of repeat scans fall within 1 SD (+/- 0.010 g/cm2 for AP spine L1-L4) and 1 SD (+/- 0.012 g/cm2 for femur total) FRAX is a trademark of the [employer]'s [facility] [employer], a World Health Organization (WHO) Collaborating Center. Electronically signed by: Jose Alberto Tidwell MD 03/08/2025 11:15 AM EDT
--- OUTSIDE RECORDS SUMMARY | 2025-03-08 12:40 | XMS_ITS | Clinical Summary ---
Author Organization [employer] Address [address] [place] [address] [address] [place] [address] Care Team Providers Care Illustrator Set Name Role Phone Unavailable Primary Care Provider [...] COVID-19 Vaccine ( - 2023-2 5 season) 2025 Influenza Vaccine (#1) 2025 03/23/2024 HIB Vaccines [...] patient's age to complete this topic [place] [address] , [address] [place] [phone]
== END 2025-03-08 10:42 | disposition home or self-care (01) ==
LOC: HO.MAMMO 10:41
DX: Z13.820 Encounter for screening for osteoporosis (principal); Z78.0 Asymptomatic menopausal state
CPT/HCPCS: 77080

== ENCOUNTER → 2025-03-08 11:00 | Outpatient (BNV) | payer MEDICARE, SELFPAY | PROVIDERS: Visit Provider Radiology Diagnostic Radiology | DX: E28.39 Other primary ovarian failure (principal) | CPT/HCPCS: 77080 ==

== ENCOUNTER 2025-04-29 15:40 | Emergency (ER) | payer MEDICARE, SELFPAY ==
--- NOTE | ~2025-04-29 | CT_ITS ---
CLINICAL HISTORY: fall, pain CT cervical spine without contrast Comparison: None provided Findings: Cervical alignment is maintained. Vertebral body height is maintained. No acute fracture in the cervical spine. Craniocervical junction is intact. Degenerative disc disease especially at C5-6 and C6-7 levels. Multilevel facet arthropathy. Foraminal stenosis at C3-4 on the left and C5-6 on the right. Prevertebral soft tissues within normal limits. No consolidation or effusion at the lung apices. IMPRESSION: No acute findings. This document has been electronically signed by: Dennise Khanna MD on 04/29/2025 17:51:28
--- NOTE | ~2025-04-29 | CT_ITS ---
CLINICAL HISTORY: fall, pain CT maxillofacial without contrast Comparison: None provided Findings: No acute fractures. No dislocations. Temporomandibular joints are intact. Paranasal sinuses and mastoid air cells clear. Orbits normal. Visualized intracranial contents demonstrate no acute findings. IMPRESSION: No acute facial bone fracture. This document has been electronically signed by: Dennise Khanna MD on 04/29/2025 17:56:05
--- NOTE | ~2025-04-29 | CT_ITS ---
CLINICAL HISTORY: fall, pain CT head without contrast Comparison: None provided Findings: No intra-axial mass, midline shift, hydrocephalus, or acute hemorrhage. There is atrophy. There are mild nonspecific supratentorial white matter hypodensities bilaterally most suggestive of chronic small-vessel ischemic changes. Atherosclerotic vascular disease. There is no sinus or mastoid fluid. The orbits are unremarkable. No acute skull fracture. IMPRESSION: 1. No acute intracranial findings. This document has been electronically signed by: Dennise Khanna MD on 04/29/2025 17:43:50
--- NOTE | ~2025-04-29 | XR_ITS ---
EXAMINATION: XR HAND, LEFT CLINICAL INFORMATION: pain, fall, injury COMPARISON: None available. TECHNIQUE: PA, lateral, and oblique views of the left hand. FINDINGS: There is diffuse osteopenia. There are moderate degenerative changes involving the DIP joint of the second digit with ulnar deviation, joint space narrowing, subchondral sclerosis, and marginal osteophytes. Small marginal osteophytes are present at the other DIP joints and the second and fifth PIP joints. There is degenerative cystic underside of the base of middle phalanx fourth digit. Moderate marginal osteophytes are evident at the second MCP joint and IP joint of thumb. There is degenerative cystic change in the waist of scaphoid. There is mild narrowing of the STT joint and first CMC joint. No fracture is identified. XR/XR hand LT min 3V IMPRESSION: Diffuse osteopenia. Osteoarthritis. No visualized fracture. Electronically signed by: Andreas Hamm MD 04/29/2025 05:05 PM EDT
--- NOTE | 2025-04-29 15:45 | ED_ITS ---
HPI - General Adult General Chief complaint: Fall Stated complaint: mechanical fall Time Seen by Provider: 04/29/25 15:45 Source: patient, family (patient's daughter) and EMS Mode of arrival: EMS Limitations: no limitations History of Present Illness ED Provider: Megan Moore PA-C HPI narrative: This is a 84yo female who presents to the ED for mechanical fall. She has a history of sensorineural hearing loss, osteoarthritis, allergic rhinitis, and hyperlipidemia. She reports tripping and falling over the sidewalk outside the [facility] center when she was walking to her car. She hit her mouth, but denies losing consciousness. Denies precipitating events. Denies pain, stating that only the cervical collar is uncomfortable. Endorses multiple mechanical falls this year. Abrasions of the lips, chin, left 1st finger MCP joint and hypothenar eminence, without significant bleeding. Denies new medications or recent changes to her health. Her hearing aid is not working well at the moment. Related Data Home Medications ?Medication ?Instructions ?Recorded ?Confirmed multivitamin (Daily Multi-Vitamin 1 tab PO DAILY 09/0801/13/25 tablet) Previous Rx's ?Medication ?Instructions ?Recorded polyethylene glycol 3350 17 gram 17 g PO DAILY #100 ea 07/18/22 oral powder packet (Miralax) simvastatin 20 mg tablet 20 mg PO QPM #90 tabs fluticasone propionate 50 2 spray intranasal DAILY #15 .8 mL 09/30/24 mcg/actuation nasal spray,suspension amoxicillin 875 mg-potassium 1 tab PO BID 5 days #10 t abs 04/29/25 clavulanate 125 mg tablet Allergies Allergy/AdvReac Type Severity Reaction Status Date / Time No Known Allergies Allergy Verified 04/29/25 15:53 Review of Systems 2 Constitutional: Constitutional: Reports as per HPI Eyes: Eyes: Reports as per HPI ENT: Reports as per HPI Cardiovascular: Cardiovascular: Reports as per HPI Respiratory: Respiratory: Reports as per HPI Gastrointestinal: Gastrointestinal: Reports as per HPI Genitourinary: Genitourinary: Reports as per HPI Musculoskeletal: Musculoskeletal: Reports as per HPI Integumentary/Breasts: Skin/Breast: Reports as per HPI Neurologic: Reports as per HPI Psychiatric: Psychiatric: Reports as per HPI Endocrine: Endocrine: Reports as per HPI Hematologic/Lymphatic: Hematologic/Lymphatic: Reports as per HPI Allergic/Immunologic: Allergic/Immunologic: Reports as per HPI [facility] Past Medical History Attestation statement: The following information was validated with the patient. (patient's daughter validated all information) Source: old records reviewed, obtained from family (patient's daughter provided additional history and confirmed the history provided by the patient. ) and nursing notes reviewed Medical History Hyperlipidemia Surgical History History of breast biopsy Family History Family History Father Myocardial infarction Mother Pancreatic cancer Brother Myocardial infarction Sister Respiratory disease Sister Breast cancer Social History Social History Housing: House Patient Tobacco Use Status: Never used Tobacco e-Cigarette/Vaping Use: Never Used Second Hand Smoke Exposure: No Advance Directives: No Advance Directives Information Provided: Yes service: No Current occupational status: retired Cognitive needs: No Hearing needs: Yes (Hearing Aide) Vision needs: Yes (Glasses) Physical Exam ED Vital Signs: Vital Signs - 24 hr 04/29/25 15:48 04/29/25 16:40 Temperature 97.7 F 97.8 F Pulse Rate 90 84 Respiratory Rate 16 16 Blood Pressure 194/86 H Pulse Oximetry 99 93 Oxygen Delivery Method Room Air Room Air BMI result Body Mass Index 23.9 Const General: no acute distress, alert and awake Nutritional Appearance: well nourished Orientation/consciousness: patient oriented x3 HENMT Head: Yes abrasion (lower lip laceration - no gaping) Ears: hearing grossly normal bilaterally and external ears normal General nose exam: Normal external nose present, no nasal discharge noted and no epistaxis Mouth: Normal oral and palatal mucosa present, no drooling and no muffled voice Mouth/tongue images: 2 1. lip laceration - not gaping, not actively bleeding Eyes General: appearance normal, both eyes and all related structures Periorbital: periorbital findings normal Eyelids: Yes eyelids normal Conjunctivae: conjunctivae normal Pupils: Equal, round and reactive pupils present EOM: EOMs intact bilaterally Neck Neck: Yes normal visual inspection and Yes full ROM Resp Effort & Inspection: normal respiratory effort and able to speak in complete sentences Neuro General: patient oriented x3 Cranial nerves: Yes Equal, round and reactive pupils present Cognition (Neuro): normal cognition Extrem General: Yes full ROM and Yes capillary refill normal Left upper extremity: hand Details: abrasion Psych Appearance: grossly normal Mental Status: mental status grossly normal Affect: normal affect Attitude: cooperative Thought process: Normal thought process present Thought content: Normal thought content present Insight: Good insight present (Psych) Medical Decision Making Medical Decision Making MDM Narrative: Patient is an 84 year old female hx of sensorineural hearing loss, osteoarthritis, allergic rhinitis, and hyperlipidemia. Patient's physical exam was as noted in the physical exam portion of this note. Patient's lower lip has a small laceration that is not gaping and does not need manual closure. Patient's left hand had abrasions to it without any gaping areas. Patient's left hand x-ray, head and c-spine CTs showed no acute process. I explained my physical exam findings as well as all test results to the patient and the patient's daughter. I answered all questions asked by the patient and the patient's daughter. Patient is up to date on tetanus status. I stressed the importance of the patient taking her medication as directed (either prescribed or as the over the counter packaging recommends). I stressed the importance of the patient following up with her primary care provider. I stressed the importance of the patient returning to the emergency department immediately if her symptoms were to worsen or if she were to develop any dizziness, shortness of breath, difficulty breathing, chest pain, blurry vision, loss of vision, nausea, vomiting, abdominal pain, fever, chills, back pain, or any other complaints. Patient and the patient's daughter verbalized agreement and understanding with this treatment plan and discharge. Differential Diagnosis Differential Diagnoses: The differential diagnosis associated with the presentation includes Fall Abrasion Laceration Admission/Observation Consideration of admission/observation: Escalation of care including admission/observation considered Patient would have been admitted to the hospital had her work up had any findings where hospital admission was appropriate and her clinical presentation warranted hospital admission. Independent Interpretation I performed an independent interpretation of an: Plain X-Ray and CT Scan Interpretation: My interpretation is in agreement with the radiologist's impression of these imaging studies. L Report Number: [id number]: Total DLP = 1158.00 mGy-cm Reason for Exam: fall, pain CLINICAL HISTORY: fall, pain CT maxillofacial without contrast Comparison: None provided Findings: No acute fractures. No dislocations. Temporomandibular joints are intact. Paranasal sinuses and mastoid air cells clear. Orbits normal. Visualized intracranial contents demonstrate no acute findings. IMPRESSION: No acute facial bone fracture. This document has been electronically signed by: Dennise Khanna MD on 04/29/2025 17:56:05 Dictated By: Dennise Khanna MD Signed By: Electronically signed by Dennise Khanna MD 04/29/25 1757 Report Number: [id number]: Total DLP = 0.00 mGy-cm Reason for Exam: fall, pain CLINICAL HISTORY: fall, pain CT cervical spine without contrast Comparison: None provided Findings: Cervical alignment is maintained. Vertebral body height is maintained. No acute fracture in the cervical spine. Craniocervical junction is intact. Degenerative disc disease especially at C5-6 and C6-7 levels. Multilevel facet arthropathy. Foraminal stenosis at C3-4 on the left and C5-6 on the right. Prevertebral soft tissues within normal limits. No consolidation or effusion at the lung apices. IMPRESSION: No acute findings. This document has been electronically signed by: Dennise Khanna MD on 04/29/2025 17:51:28 Dictated By: Dennise Khanna MD Signed By: Electronically signed by Dennies Khanna MD 04/29/25 1753 Report Number: [id number]: Total DLP = 0.00 mGy-cm Reason for Exam: fall, pain CLINICAL HISTORY: fall, pain CT head without contrast Comparison: None provided Findings: No intra-axial mass, midline shift, hydrocephalus, or acute hemorrhage. There is atrophy. There are mild nonspecific supratentorial white matter hypodensities bilaterally most suggestive of chronic small-vessel ischemic changes. Atherosclerotic vascular disease. There is no sinus or mastoid fluid. The orbits are unremarkable. No acute skull fracture. IMPRESSION: 1. No acute intracranial findings. This document has been electronically signed by: Dennise hKanna MD on 04/29/2025 17:43:50 Dictated By: Dennise Khanna MD Signed By: Electronically signed by Dennise Khanna MD 04/29/25 1744 Reason for Exam: pain, fall, injury EXAMINATION: XR HAND, LEFT CLINICAL INFORMATION: pain, fall, injury COMPARISON: None available. TECHNIQUE: PA, lateral, and oblique views of the left hand. FINDINGS: There is diffuse osteopenia. There are moderate degenerative changes involving the DIP joint of the second digit with ulnar deviation, joint space narrowing, subchondral sclerosis, and marginal osteophytes. Small marginal osteophytes are present at the other DIP joints and the second and fifth PIP joints. There is degenerative cystic underside of the base of middle phalanx fourth digit. Moderate marginal osteophytes are evident at the second MCP joint and IP joint of thumb. There is degenerative cystic change in the waist of scaphoid. There is mild narrowing of the STT joint and first CMC joint. No fracture is identified. XR/XR hand LT min 3V IMPRESSION: Diffuse osteopenia. Osteoarthritis. No visualized fracture. Electronically signed by: Andreas Hamm MD 04/29/2025 05:05 PM EDT Dictated By: Andreas Hamm MD Signed By: Electronically signed by Andreas Hamm MD 04/29/25 1705 Radiology Impression Discussion of test interpretation with radiology: I have reviewed the radiologist's reading. Independent Historian Clinical information obtained from an independent historian. History obtained from or confirmed by: EMS (EMS provided additional history and confirmed the history provided by the patient. ) and Other (Patient's daughter provided additional history and confirmed the history provided by the patient. ) Discharge Plan Discharge Clinical Impression: Fall, Laceration of lip, Abrasion Patient Disposition: Home, Self-Care Instructions: Laceration (DC), Fall Prevention for Older Adults (ED), Abrasion (ED), Laceration Without Closure (ED) Additional Instructions: Your left hand x-ray showed no break / fracture. Your CT of the head, c-spine, and facial bones were unremarkable. Your lip laceration is not gaping and does not need to be manually closed. Given the open lip laceration and mechanism of injury - you have been started on a prophylactic antibiotic. Please take this as prescribed. IF you are prescribed home medications and/or you are taking over the counter medications at home - it is very important you continue to do so as prescribed / directed unless told otherwise. Follow up with your primary care provider. Return to the emergency department immediately if your symptoms worsen or if you develop any numbness, tingling, dizziness, shortness of breath, difficulty breathing, chest pain, blurry vision, loss of vision, nausea, vomiting, abdominal pain, fever, chills, back pain, or any other complaints. Please see the information below about our Patient Portal. If you are not yet enrolled in the [facility] Patient Portal, you will receive an enrollment email invitation following your visit to any [facility] ED setting. You may also self-enroll in the Patient Portal by visiting our website: [email or web address] The following information is required to access the Patient Portal: - Your [facility] Medical Record Number - Your personal home email address (must match what is in your electronic medical record, Registration staff can assist with this) - Name - Date of Capabilities of the Patient Portal: - Message some providers - View upcoming appointments - Access your health summary, medical history, and visit history - View current conditions and allergies - View procedure and lab results - View your medications, including guidelines, side effects, and precautions - Complete pre-appointment questionnaires requested by your provider - Ready summary reports of your office visits and procedures To access the Patient Portal Mobile [employer], follow these directions: - Search [employer] in the [employer] Store or [employer] Store - Download the [employer] - Search for [facility] - Enter your login/password Prescriptions: New amoxicillin-pot clavulanate 875-125 mg tablet 1 tab PO BID 5 Days Qty: 10 0RF No Action simvastatin 20 mg tablet 20 mg PO QPM Qty: 90 3RF fluticasone propionate 50 mcg/actuation spray,suspension 2 spray intranasal DAILY Qty: 15.8 2RF Rx Instructions: administer into each nostril multivitamin [Daily Multi-Vitamin] Tablet 1 tab PO DAILY polyethylene glycol 3350 [Miralax] 17 gram powder in packet 17 g PO DAILY Qty: 100 3RF Referrals: Livia Nava PA-C [Primary Care Provider, Internal Medicine] Discharge Date/Time: 04/29/25 18:30 Print Language: Afghan
[2025-04-29 15:46] VITALS: BP 118/82; PULSE 91; O2SAT 99
[2025-04-29 15:48] VITALS: PULSE 90; RESP 16; TEMP 36.5; O2SAT 99; BMI 23.9
--- OUTSIDE RECORDS SUMMARY | 2025-04-29 16:27 | XMS_ITS | Clinical Summary ---
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
[2025-04-29 16:40] VITALS: BP 194/86; PULSE 84; RESP 16; TEMP 36.6; O2SAT 93
== END 2025-04-29 18:30 | disposition home or self-care (01) ==
PROVIDERS: Emergency Provider Emergency Medicine
DX: S01.511A Laceration without foreign body of lip, initial encounter (principal); W01.0XXA Fall on same level from slipping, tripping and stumbling without subsequent striking against object, initial encounter; Y93.89 Activity, other specified; Y92.89 Other specified places as the place of occurrence of the external cause; Y99.9 Unspecified external cause status
CPT/HCPCS: 70450; 70486; 72125; 73130; 99283; 99284

== ENCOUNTER → 2025-04-29 16:10 | Outpatient (BNV) | payer MEDICARE, SELFPAY | PROVIDERS: Emergency Provider Emergency Medicine; Visit Provider Specialist | DX: M54.2 Cervicalgia (principal); R51.9 Headache, unspecified; S69.92XA Unspecified injury of left wrist, hand and finger(s), initial encounter; W18.39XA Other fall on same level, initial encounter | CPT/HCPCS: 70450; 70486; 72125; 73130 ==